=== PATIENT | female | born 1940 | race Caucasian/White ===

== ENCOUNTER 2021-01-01 14:52 | Outpatient (CLI) | payer OTHER, SELFPAY ==
--- NOTE | ~2021-01-01 | DEXA_ITS ---
Bone Density Report Name: Maryana Arteaga Age: 80 Sex: Female Ethnicity: White Date of : 1940 Indication: monitoring treatment; hysterectomy; Referring Provider: Thais Siddiqui Study: Bone densitometry was performed. Exam Date: January 01, 2021 Accession number: [id number] Bone Density: Region BMD T-score Z-score Classification AP Spine (L1-L4) 0.988 -0.5 2.2 Normal Femoral Neck (Left) 0.685 -1.5 0.8 Osteopenia Total Hip (Left) 0.902 -0.3 1.8 Normal Total Hip Bilateral Avg 0.891 -0.4 1.7 Normal Femoral Neck (Right) 0.737 -1.0 1.3 Normal Total Hip (Right) 0.878 -0.5 1.6 Normal World Health Organization criteria for BMD impression classify patients as: Normal (T-score at or above -1.0), Osteopenia (T-score between -1.0 and -2.5), or Osteoporosis (T-score at or below -2.5). 10-year Fracture Risk: FRAX not reported because: Treated for osteoporosis Previous Exams: Region Exam Age BMD T-score BMD Change BMD Change Date g/cm2 vs Baseline vs Previous AP Spine(L1-L4) 01/01/2021 80 0.988 -0.5 0.042(4.4%)# 0.023(2.4%)# 05/01/2010 69 0.965 -0.7 0.019(2.0%) -0.011(-1.1%) 04/12/2008 67 0.976 -0.6 0.030(3.1%)* 0.030(3.1%)* 09/07/2005 65 0.946 -0.9 Total Hip(Left) 01/01/2021 80 0.902 -0.3 0.089(10.9%)# 0.032(3.7%)# 05/01/2010 69 0.870 -0.6 0.057(7.0%)* 0.036(4.4%)* 04/12/2008 67 0.834 -0.9 0.021(2.5%) 0.021(2.5%) 09/07/2005 65 0.813 -1.1 Total Hip(Right) 01/01/2021 80 0.878 -0.5 0.065(8.0%)# 0.027(3.2%)# 05/01/2010 69 0.851 -0.7 0.038(4.7%)* 0.020(2.5%) 04/12/2008 67 0.831 -0.9 0.018(2.2%) 0.018(2.2%) 09/07/2005 65 0.813 -1.1 *Denotes significance at 95% confidence level, LSC for AP Spine = 0.022 g/cm2, LSC for Total Hip = 0.027 g/cm2 Clinical Information Provided by Patient: Is being treated for osteoporosis Has used the following medications: Vitamin D, Calcium Has the following medical conditions: Hysterectomy Patient maximum height was 61 Menopause Age: 25 No regular weight bearing exercise Drinks caffeinated beverages Onset of menses at age 14 Number of children 4 Impression: The patient has low bone mass, based on the Left Femoral Neck T-score. No significant bone loss was observed. Discussion: PATIENT UNDER TREATMENT WITH NO SIGNIFICANT BMD LOSS SINCE LAST EXAM. In an untreated patient, BMD typically declines with age. A lack of decline
--- NOTE | ~2021-01-01 | MM_ITS ---
EXAMINATION: MM scrn pancho implant BI w kimmie HISTORY: Screening mammogram TECHNIQUE: Craniocaudal and mediolateral oblique 3-D tomosynthesis images with implant displacement a nd synthetic 2-D images were generated. Craniocaudal and mediolateral oblique views of the breasts wi thout implant displacement were obtained using full field digital mammography. CAD analysis was submi tted and interpreted. COMPARISON: 04/12/2019, 02/16/2018, 08/16/2017 BREAST PARENCHYMAL COMPOSITION: There are scattered areas of fibroglandular density. FINDINGS: There is no evidence of suspicious mass, calcification, or architectural distortion to sugg est malignancy in either breast. There has been no suspicious interval change. IMPRESSION: 1. No mammographic evidence of malignancy. 2. Recommend routine screening mammography while the patient remains in good health. BI-RADS Category 1: Negative Reviewed, dictated and finalized at location A. IMPRESSION: 1. No mammographic evidence of malignancy. 2. Recommend routine screening mammography while the patient remains in good he alth. BI-RADS Category 1: Negative
== END 2021-01-01 14:53 | disposition home or self-care (01) ==
PROVIDERS: PCP Internal Medicine; Visit Provider Nurse Practitioner
DX: Z78.0 Asymptomatic menopausal state (principal); Z12.31 Encounter for screening mammogram for malignant neoplasm of breast; M85.852 Other specified disorders of bone density and structure, left thigh
CPT/HCPCS: 77063; 77067; 77080

== ENCOUNTER 2021-01-08 14:00 | Outpatient (CLI) | payer OTHER, MEDICARE, SELFPAY | END 2021-01-08 14:01 | disposition home or self-care (01) | LOC: ANHCOVIDVC 14:00 | PROVIDERS: PCP Internal Medicine | DX: Z23 Encounter for immunization (principal) | CPT/HCPCS: 0001A; 91300 ==

== ENCOUNTER 2021-01-29 14:05 | Outpatient (CLI) | payer OTHER, MEDICARE, SELFPAY | END 2021-01-29 14:06 | disposition home or self-care (01) | LOC: ANHCOVIDVC 14:05 | PROVIDERS: PCP Internal Medicine | DX: Z23 Encounter for immunization (principal) | CPT/HCPCS: 0002A; 91300 ==

== ENCOUNTER 2021-07-22 03:17 | Day surgery (SDC) | payer OTHER, SELFPAY ==
[2021-07-10 13:19] VITALS: BMI 30.8
[2021-07-22 10:13] VITALS: BP 154/70; PULSE 70; RESP 18; TEMP 36.5; O2SAT 100
[2021-07-22] MEDS: LACTATED RINGERS 1,000 ML 30 ML IV CONT (10:35)
--- NOTE | 2021-07-22 11:24 | WPDANESEPPF ---
Anes - Initial Pre Proc Eval Procedure: Operation Date: 07/22/21 12:00 Proposed Procedures p Excision Left Upper Back Mass - Krishna Roque DO Date/Time: 07/22/21 11:24 Surgeon: Krishna Roque DO Pre Op Diagnosis: Left Upper Back Mass (6CM) Patient Data Age: 80 Gender: F Height: 1.55 m Weight: 73.35 kg Last Vital Signs Temp 36.5 C 07/22/21 10:13 Pulse 70 07/22/21 10:13 Resp 18 07/22/21 10:13 BP 154/70 H 07/22/21 10:13 Pulse Ox 100 07/22/21 10:13 Allergies Allergy/AdvReac Type Severity Reaction Status Date / Time No Known Allergies Allergy Verified 07/22/21 10:41 Home Medications Medication Instructions Recorded Confirmed Type aspirin 81 mg PO QAM #30 tablet 08/31/19 07/22/21 Rx blood pressure monitor [Blood #1 each 08/31/19 07/22/21 Rx Pressure Kit] calcium carbonate 500 mg calcium 500 mg PO DAILY #90 tablet 01/05/21 07/22/21 Rx (1,250 mg) tablet atorvastatin 40 mg tablet See Rx Instructions .ROUTE 03/16/21 07/22/21 Rx .COMPLEX #90 tablet cholecalciferol (vitamin D3) 1,250 50,000 unit PO WEEKLY #12 cap 05/14/21 07/22/21 Rx mcg (50,000 unit) capsule losartan 50 mg tablet 50 mg PO DAILY 07/07/21 07/22/21 History biotin 5 mg PO DAILY 07/10/21 07/22/21 History fluticasone propionate 2 spray NASAL PRN PRN 07/10/21 07/22/21 History ropinirole 1 mg PO HS PRN 07/10/21 07/22/21 History omeprazole 40 mg capsule,delayed 40 mg PO DAILY #90 cap 07/13/21 07/22/21 Rx release Patient hx anesthesia problems: none Family hx anesthesia problems: none Results Review: All pre-operative results and documents have been reviewed as part of the pre-operative evaluation. [facility] Past Medical History Medical History Abdominal cramping Cerebrovascular accident Dyslipidemia GERD without esophagitis History of ganglion cyst Hypertension Osteoarthritis Vitamin D deficiency Surgical History Surgical History History of bladder repair surgery History of laparoscopic cholecystectomy Hx of hysterectomy S/P breast augmentation Status post blepharoplasty Status post cataract extraction Status post cholecystectomy Family History Family History Sibling Diabetes mellitus Family history of diabetes mellitus in first degree relative Family history of lung cancer Patient's sister is Mother Family history of Alzheimer's disease Patient's mother is Father Family history of lung cancer Patient's father is Social History Social History Social History: Mrs. Arteaga is and lives in [place] with her Richard. They have 4 children, one who is . She is retired from [employer]. She designates her as her surrogate decision maker and she wishes to be a full code. She smoked up to 2 packs of cigarettes per day and quit in the late . No alcohol or drug abuse. Her primary care provider is Dr. Av Brambila. Smoking packs per day: 2 Smoking cigarettes per day: 40.0 Years smoked: 30 Smoking pack-years: 60.00 Smoking status: Former smoker Tobacco type: cigarettes Second hand tobacco smoke exposure: Yes Smoking end date: 10/03/89 Alcohol intake: never Living arrangements: with family Spiritual care concerns: No Anes - Eval Final PreProcedure Day of Procedure 07/22/21 11:24 Patient weight: obese Heart: regular rate and rhythm Lungs: clear to auscultation Airway: Mallampati scale class II Neurological: alert and oriented Last oral intake: >/= 8 hours ASA classification: III Emergent: no Anesthetic plan: proceed Anesthesia type and monitoring: general GIVS and standard monitoring Results Review: All pre-operative results and documents have been reviewed as
--- NOTE | 2021-07-22 12:21 | WPDHPUPDATE1 ---
History and Physical Update Update Date/Time: 07/22/21 12:21 History and Physical has been reviewed, including an updated exam of the patient. There are NO changes in the patient's condition. Risks, benefits, and alternatives have been discussed and questions answered. Patient agrees to proceed with procedure.
[2021-07-22] MEDS: ceFAZolin 2 GM/D5W 50 ML 2 GM/50 ML BAG IVPB (12:31)
[2021-07-22] MEDS: LIDO 1%/EPINEPHRINE 1:100,000 50 ML VIAL 10 ML INFILTRATE (12:54)
--- NOTE | 2021-07-22 13:14 | W.PM.PROC2 ---
Procedure Note - Detailed Date of Procedure 07/22/21 Pre-op Diagnosis Left Upper Back Mass (6CM) Post-op Diagnosis same Procedure Performed 1. Excision 6 cm left upper back mass 2. Layered closure Surgeon Krishna Roque, DO Anesthesia MAC and local (1% lidocaine with epinephrine) Indications This is an 80-year-old woman who presented with a progressively enlarging mass on her back. She has noticed this for a couple years and it has become larger and she does have some discomfort when leaning up against something. Discussions were made with the patient about treatment options and decision was made to proceed with excision of 6 cm back mass. Findings Excision of 6 cm back mass was performed. The patient appeared to have a large lipoma in the left upper back. No other surrounding abnormalities were noted. The mass was completely excised and sent to the lab for pathology. The Vince's fascia was then reapproximated using 3-0 Vicryl simple interrupted sutures and the skin was reapproximated using 3-0 nylon vertical mattress interrupted sutures. Description of Procedure Procedure as well as risks, benefits, and alternatives were discussed with the patient. Written consent was obtained and placed in chart prior to procedure. Patient was brought back to surgical suite. She was placed in right lateral decubitus position. Time-out was done to confirm patient and procedure. IV sedation was then administered by the anesthesia department. Her left upper back area was prepped and draped in sterile fashion using chlorhexidine prep. 1% lidocaine with epinephrine was infiltrated directly over the mass. A 6 cm transverse incision was made in the left upper back directly over the mass using a 15 blade scalpel. Electrocautery was used for hemostasis. Careful further dissection was carried out using electrocautery down to the level of the mass. The mass was then carefully excised completely using electrocautery. The wound bed was then inspected and no other masses were identified. The area was then irrigated with sterile saline. Hemostasis appeared adequate. No other abnormalities were noted. Vince's fascia was then reapproximated using 3-0 Vicryl simple interrupted sutures. The skin was then reapproximated using 3-0 nylon vertical mattress interrupted sutures. Bacitracin ointment was then applied followed by 4 x 4 gauze and tape. Estimated Blood Loss 5 Pathology yes (6 cm left upper back mass) Complications No immediate complications Condition stable Disposition same day
[2021-07-22 13:21] VITALS: BP 96/50; PULSE 62; RESP 14; O2SAT 98
[2021-07-22 13:45] VITALS: BP 106/54; PULSE 63; RESP 14; O2SAT 98
[2021-07-22 14:15] VITALS: BP 121/53; PULSE 60; RESP 16; O2SAT 100
== END 2021-07-22 14:31 | disposition home or self-care (01) ==
PROVIDERS: PCP Student in an Organized Health Care Education/Training Program; Visit Provider Surgery
PROC: (CPT 21931; principal; 2021-07-22 12:00)
DX: D17.1 Benign lipomatous neoplasm of skin and subcutaneous tissue of trunk (principal); E78.5 Hyperlipidemia, unspecified; I10 Essential (primary) hypertension; K21.9 Gastro-esophageal reflux disease without esophagitis; E55.9 Vitamin D deficiency, unspecified; Z86.73 Personal history of transient ischemic attack (TIA), and cerebral infarction without residual deficits; M19.90 Unspecified osteoarthritis, unspecified site; Z79.82 Long term (current) use of aspirin; Z87.891 Personal history of nicotine dependence; E66.9 Obesity, unspecified; Z68.30 Body mass index [BMI] 30.0-30.9, adult
CPT/HCPCS: 21931; 88304; A9270; J0690; J2405; J2704; J3010; J7120

== ENCOUNTER → 2022-03-11 11:17 | Outpatient (CLI) | payer OTHER, SELFPAY ==
--- NOTE | ~2022-03-11 | MM_ITS ---
EXAMINATION: MM scrn pancho implant BI w kimmie HISTORY: Screening mammogram TECHNIQUE: Craniocaudal and mediolateral oblique 3-D tomosynthesis images with implant displacement a nd synthetic 2-D images were generated. Craniocaudal and mediolateral oblique views of the breasts wi thout implant displacement were obtained using full field digital mammography. CAD analysis was submi tted and interpreted. COMPARISON: 122, 04/12/2019, 02/16/2018 BREAST PARENCHYMAL COMPOSITION: There are scattered areas of fibroglandular density. FINDINGS: RIGHT BREAST: There is no evidence of suspicious mass, calcification, or architectural distortion to suggest malignancy. There has been no significant interval change. LEFT BREAST: There is a possible mass in the anterior third of the slightly inner breast. IMPRESSION: 1. Possible left breast mass. 2. Additional mammographic views and possible breast ultrasound are recommended. BI-RADS Category 0: Incomplete: Needs additional imaging evaluation. Reviewed, dictated and finalized at location A. IMPRESSION: 1. Possible left breast mass. 2. Additional mammographic views and possible breast ultrasound are recommended . BI-RADS Category 0: Incomplete: Needs additional imaging evaluation.
== END ==
PROVIDERS: PCP Student in an Organized Health Care Education/Training Program; Visit Provider Obstetrics & Gynecology Gynecology
DX: Z12.31 Encounter for screening mammogram for malignant neoplasm of breast (principal); R92.8 Other abnormal and inconclusive findings on diagnostic imaging of breast
CPT/HCPCS: 77063; 77067

== ENCOUNTER → 2022-03-24 09:54 | Outpatient (CLI) | payer OTHER, SELFPAY ==
--- NOTE | ~2022-03-24 | MMUS_ITS ---
EXAMINATION: MM diag pancho implant LT w kimmie, US breast LT complete HISTORY: Possible left breast mass in the anterior third of slightly inner breast reported on 03/21/20 screening mammogram TECHNIQUE: Additional 3-D tomosynthesis images of the left breast were performed and synthetic 2-D im ages were generated. CAD analysis was submitted and interpreted. High resolution complete left breast ultrasound including all 4 quadrants and subareolar area was performed. COMPARISON: 03/11/2021, 01/01/2021 bilateral implant screening mammogram examinations FINDINGS: MAMMOGRAPHIC FINDINGS: Asymmetric increased density is noted posteriorly in the mid to upper inner left breast since Somewhat nodular appearing fibroglandular stroma is noted throughout the breast. Complete breast ultr asound examination was performed. ULTRASOUND: 2:00 8 cm from nipple: Parallel 2.2 x 7.9 x 5 mm sonolucency consistent with cyst 4:00 5 cm from nipple: Parallel circumscribed 2.4 x 5.6 x 4.4 mm sonolucent, compatible with simple c yst 6:00 4 cm from nipple: Septated 4.1 x 4.3 x 4.5 mm cyst 10:00 7 cm from nipple: Irregular heterogeneous hypoechoic mass with mild internal vascularity on col or flow imaging, measuring up to 9 x 5.6 x 7.4 mm. No posterior features are noted. This corresponds to the approximate area of new asymmetric density mammographically. Ultrasound-guided biopsy is recom mended. 11:00 4 cm from nipple: Parallel circumscribed 5.9 x 2.7 x 6.3 mm hypoechoic area without internal va scularity or posterior shadowing IMPRESSION: 1. New up to 9 mm irregular hypoechoic heterogeneous mass 10:00 7 cm from nipple 2. Ultrasound-guided biopsy of 10:00 mass is recommended BI-RADS category 4, suspicious findings. Reviewed, dictated and finalized at location A. IMPRESSION: 1. New up to 9 mm irregular hypoechoic heterogeneous mass 10:00 7 cm from nippl e 2. Ultrasound-guided biopsy of 10:00 mass is recommended BI-RADS category 4, suspicious findings.
== END ==
PROVIDERS: PCP Student in an Organized Health Care Education/Training Program; Visit Provider Obstetrics & Gynecology Gynecology
DX: R92.8 Other abnormal and inconclusive findings on diagnostic imaging of breast (principal)
CPT/HCPCS: 76641; 77061; 77065; G0279

== ENCOUNTER 2022-04-14 10:11 | Outpatient (CLI) | payer OTHER, SELFPAY ==
--- NOTE | ~2022-04-14 | MMUS_ITS ---
EXAMINATION: US breast biopsy LT w image, MM post biopsy invasive LT DATE: 04/14/2022 11:23 (accession [id number]), 04/14/2022 11:26 (accession [id number]) INDICATION: Indeterminate mass in the upper outer quadrant of the left breast Ultrasound-guided core biopsy is requested to evaluate for malignancy. TECHNIQUE AND FINDINGS: The risks and potential benefits of the procedure were discussed with the patient including bleeding, infection, and nondiagnostic specimen. A time out was performed. The skin of the left breast was pre pared and draped in usual sterile fashion. 1% lidocaine was used for superficial anesthesia. 1% lidoc tucker with epinephrine was used for deep anesthesia. A vacuum-assisted biopsy gun needle was advanced through to the outer edge of the region of interest from a lateral approach utilizing sonographic guidance. A total of six tissue core samples were obtai fletcher through the lesion. A tissue marker clip was then placed at the biopsy site. Hemostasis was achie joshua. A sterile bandage was applied. The patient tolerated procedure well and there was no evidence of immediate complication. The patient was given verbal instructions to return to the Emergency Department in the event of severe breast pa in or rapid breast enlargement. A two view left breast mammogram was obtained to document tissue eladio er clip placement. IMPRESSION: 1. Successful ultrasound-guided vacuum-assisted biopsy of left breast mass with tissue marker placeme nt. Reviewed, dictated and finalized at location A. IMPRESSION: 1. Successful ultrasound-guided vacuum-assisted biopsy of left breast mass with tissue marker placement.
== END 2022-04-14 10:12 | disposition home or self-care (01) ==
PROVIDERS: PCP Student in an Organized Health Care Education/Training Program; Visit Provider Surgery
DX: C50.912 Malignant neoplasm of unspecified site of left female breast (principal); R92.8 Other abnormal and inconclusive findings on diagnostic imaging of breast
CPT/HCPCS: 19083; 88305; 88342; A4648

== ENCOUNTER 2022-05-21 10:19 | Outpatient (CLI) | payer OTHER, SELFPAY ==
--- NOTE | 2022-05-21 10:30 | ECG_ITS ---
Measurements Intervals Foster Rate: 62 P: 21 MN: 136 QRS: -25 QRSD: 101 T: -16 QT: 393 QTc: 400 Interpretive Statements SINUS RHYTHM WITH OCCASIONAL VENTRICULAR PREMATURE COMPLEXES BORDERLINE LEFT AXIS DEVIATION [QRS AXIS < -20] MODERATE VOLTAGE CRITERIA FOR LVH, CONSIDER NORMAL VARIANT [MEETS CRITERIA IN ONE OF: R(aVL), S(V1), R(V5), R(V5/V6)+S(V1)] ABNORMAL ECG COMPARED TO ECG 08/30/2019 11:37:09 NO SIGNIFICANT CHANGES Electronically Signed On 05-21-2022 12:05:34 CDT by Omer Rizvi M.D.
[2022-05-21 10:58] LABS: Hematocrit 43.3 % (37.0-47.0); Hemoglobin 13.4 g/dL (12.0-15.0)
== END 2022-05-21 10:20 | disposition home or self-care (01) ==
LOC: ANHSURGERY 10:26
PROVIDERS: Anesthesiology; PCP Student in an Organized Health Care Education/Training Program; Visit Provider Surgery
DX: C50.919 Malignant neoplasm of unspecified site of unspecified female breast (principal); I10 Essential (primary) hypertension; Z86.39 Personal history of other endocrine, nutritional and metabolic disease; Z01.818 Encounter for other preprocedural examination; R94.31 Abnormal electrocardiogram [ECG] [EKG]
CPT/HCPCS: 36415; 85014; 85018; 86850; 86900; 86901; 93005

== ENCOUNTER 2022-05-25 01:25 | Day surgery (SDC) | payer OTHER, SELFPAY ==
--- NOTE | 2022-05-20 08:33 | PC.NURSE ---
Report to the Outpatient Waiting Room, entrance under the green pavilion located off [facility], at time _0830 on date _05/25/22 . OR Time: _1130 . [facility] AT 0930 - You and your visitor will be asked to self-screen and do not enter if you have any COVID symptoms. - Only one visitor and NO children visitors are allowed at this time. - The patient visitor is requested to leave or wait in car when not with patient due to restrictions. - A mask is required within the hospital. Patients may have clear liquids (water, carbonated beverages, clear teas, apple juice) until 3 hours prior to surgery with a maximum of 20 ounces. - No food from midnight until time of surgery - Infants may have breast milk until 4 hours before surgery, formula 6 hours prior to surgery. - Children will be allowed to drink immediately following surgery. If applicable, please bring a bottle or sippy cup to assist with drinking. Juice, water, soda, and popsicles are readily available. For infants on formula, please bring formula the day of surgery. Pacifiers are allowed. Take the following medications with a SIP of water the morning of surgery: __NONE Medications to discontinue per physician ____ALL VITAMINS AND SUPPLEMENTS 3 DAYS PRE OP Date to take last dose___05/21/22 Please no make-up, nail indonesian, hairspray, perfume, deodorant, or body powder the day of surgery. No jewelry (including any body piercings) or valuables the day of surgery, leave them at home. Please take a shower or bath the night before, or the morning of, surgery with an antibacterial soap. Wear comfortable, loose fitting clothing. Children are encouraged to wear pajamas. - Jewelry must be removed prior to entering the operating room. Rings and piercings that are not removed may be cut off. - The hospital will not accept responsibility for valuables. - Please leave all valuables, including medications, at home the day of surgery.HIBICLENS SHOWER MORNING OF SURGERY If you are going home after surgery, a licensed professional driver must drive you home. - NO public transportation without another adult. - We recommend that an adult stay with you for 24 hours following discharge. - We also recommend that you do not drive, make important decision, drink alcoholic beverages, or take any drugs that were not prescribed by your health care provider for at least 24 hours after your discharge time. For Pediatric surgeries, we recommend two adults accompany the child home (only one inside the building at this time). Follow any additional instructions given to you from your surgeon. If you or anyone in your household have experienced Covid symptoms in the past week, please notify your surgeon or the nurse liaison at the phone number below for possible testing. Telephone instructions given to __PATIENT and asked if any additional questions and then verbalized understanding. Patient advised to call surgeon office or pre surgery nurse liaison [phone] if any additional questions.
[2022-05-20 08:44] VITALS: BMI 31.1
[2022-05-25] VITALS (14 sets, daily range): BP systolic 134–166; BP diastolic 52–75; PULSE 44–74; RESP 12–20; TEMP 35.9–36.5; O2SAT 98–100
--- NOTE | ~2022-05-25 | NM_ITS ---
NM sentinel node w imaging 05/25/2022 11:33 CDT INDICATION: Left breast cancer TECHNIQUE: 1 Millicuries Tc 99m filtered sulfur colloid was injected and 4 aliquots in the anterior u pper outer quadrant of the breast near the areola. No images were obtained. IMPRESSION: 1: Status post left breast sentinel lymph node radiopharmaceutical injection. Reviewed, dictated and finalized at location A.
[2022-05-25 10:13] LABS: Glucose Point of Care 117 mg/dl (65-105)
[2022-05-25] MEDS: ACETAMINOPHEN 500 MG TABLET 1000 MG PO (10:15)
[2022-05-25] MEDS: KETOROLAC 15 MG/ML VIAL (*BKC) IV PUSH (10:15)
--- NOTE | 2022-05-25 10:36 | SUR.PREOP ---
1030 PT TO NUCLEAR MEDICINE PER WHEELCHAIR.
[2022-05-25] MEDS: LACTATED RINGERS 1,000 ML 30 ML IV CONT ×2 (10:50→14:32)
--- NOTE | 2022-05-25 10:53 | WPDANESEPPF ---
Anes - Initial Pre Proc Eval Procedure: Operation Date: 05/25/22 11:30 Proposed Procedures p Bilateral Simple Mastectomy with, - Krishna Roque DO s Left Axillary [place] Node Biopsy - Krishna Roque DO Date/Time: 05/25/22 10:53 Surgeon: Krishna Roque DO Pre Op Diagnosis: left Breast cancer Patient Data Age: 81 Gender: F Height: 1.55 m Weight: 75.25 kg Last Vital Signs Temp 36.1 C L 05/25/22 09:40 Pulse 74 05/25/22 09:40 Resp 18 05/25/22 09:40 BP 162/62 H 05/25/22 09:40 Pulse Ox 98 05/25/22 09:40 O2 Del Method Room Air 05/25/22 09:40 Allergies Allergy/AdvReac Type Severity Reaction Status Date / Time amlodipine Allergy Swelling Verified 05/25/22 09:50 lisinopril Allergy Cough Verified 05/25/22 09:50 Home Medications Medication Instructions Recorded Confirmed Type aspirin 81 mg tablet,delayed 81 mg PO QAM #30 tabs 08/31/19 05/25/22 Rx release blood pressure monitor (Blood #1 ea 08/31/19 04/27/22 Rx Pressure Kit) calcium carbonate 500 mg calcium 500 mg PO DAILY #90 tabs 01/05/21 05/25/22 Rx (1,250 mg) tablet cholecalciferol (vitamin D3) 1,250 50,000 unit PO WEEKLY #12 caps 05/14/21 05/25/22 Rx mcg (50,000 unit) capsule losartan 50 mg tablet 50 mg PO DAILY 07/07/21 05/20/22 History fluticasone propionate 50 2 spray intranasal PRN PRN Allergy 07/10/21 05/25/22 History mcg/actuation nasal Symptoms spray,suspension ropinirole 0.5 mg tablet 1 mg PO HS PRN restless leg 07/10/21 05/25/22 History omeprazole 40 mg capsule,delayed 40 mg PO DAILY #90 caps 07/13/21 05/25/22 Rx release atorvastatin 40 mg tablet See Rx Instructions .Route 01/18/22 05/25/22 Rx .COMPLEX #90 tabs ferrous sulfate 325 mg (65 mg 325 mg PO DAILY 05/20/22 05/25/22 History iron) tablet Laboratory Tests 05/25/22 10:07 POC Capillary Glucose 117 mg/dl H mg/dl (65-105) Patient hx anesthesia problems: none Family hx anesthesia problems: none Results Review: All pre-operative results and documents have been reviewed as part of the pre-operative evaluation. [facility] Past Medical History Medical History Abdominal cramping Cerebrovascular accident Dyslipidemia GERD without esophagitis History of ganglion cyst Hypertension Osteoarthritis Vitamin D deficiency Surgical History Surgical History H/O excision of mass LEFT UPPER BACK MASS, 07/22 History of bladder repair surgery History of laparoscopic cholecystectomy Hx of hysterectomy S/P breast augmentation Status post blepharoplasty Status post cataract extraction Status post cholecystectomy Family History Family History Sibling Diabetes mellitus Family history of diabetes mellitus in first degree relative Family history of lung cancer Patient's sister is Mother Family history of Alzheimer's disease Patient's mother is Father Family history of lung cancer Patient's father is Social History Social History Social History: Mrs. Arteaga is and lives in [place] with her Richard. They have 4 children, one who is . She is retired from [employer]. She designates her as her surrogate decision maker and she wishes to be a full code. She smoked up to 2 packs of cigarettes per day and quit in the late . No alcohol or drug abuse. Her primary care provider is Dr. Av Brambila. Smoking packs per day: 2 Smoking cigarettes per day: 40.0 Years smoked: 30 Smoking pack-years: 60.00 Smoking status: Former smoker Tobacco type: cigarettes Second hand tobacco smoke exposure: Yes Smoking end date: 10/03/88 Alcohol intake: never Living arrangements: with family Spiritual care concerns: No
--- NOTE | 2022-05-25 10:55 | SUR.PREOP ---
1050 PT RETURNED FROM NUCLEAR MEDICINE PER WHEELCHAIR
--- NOTE | 2022-05-25 11:41 | WPDHPUPDATE1 ---
History and Physical Update Update Date/Time: 05/25/22 11:41 History and Physical has been reviewed, including an updated exam of the patient. There are NO changes in the patient's condition. Risks, benefits, and alternatives have been discussed and questions answered. Patient agrees to proceed with procedure. Discussed with patient that bilateral breast implants will be removed with mastectomy.
[2022-05-25] MEDS: ceFAZolin 2 GM/D5W 50 ML 2 GM/50 ML BAG IVPB (11:47)
[2022-05-25] MEDS: ISOSULFAN BLUE 1% INJ 5 ML VIAL SUB-Q (11:59)
--- NOTE | 2022-05-25 14:41 | W.PM.PROC2 ---
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 Bilateral simple mastectomy 2. Lymphatic mapping of left axillary lymph nodes with isosulfan blue dye 3. Left axillary sentinel lymph node biopsy 4. Removal of bilateral breast implants Surgeon Krishna Roque, DO Anesthesia General and Local (0.25% bupivicaine with epinephrine) Indications This is an 81-year-old woman who presented with a recent abnormal mammogram. She underwent ultrasound-guided left breast needle biopsy on 04/14/2022 and pathology showed evidence of invasive ductal carcinoma. Patient also has history of bilateral breast implants that were done more than 40 years ago. On the mammography the breast implants appeared to be anterior to the pectoral muscle. She was referred to Plastic surgery for evaluation in case this was going to be a complicated procedure to remove the implants with the mastectomy. Treatment options were discussed in detail including lumpectomy and mastectomy. She was also given the option of bilateral mastectomy. Reconstruction was also discussed with the patient however she did not wish to proceed with reconstruction. Patient elected to proceed with bilateral mastectomy. Due to the location the implants with close proximity to the breast tissue, I discussed with the patient that the implants will likely need to be removed to perform an adequate oncologic resection. Decision was then made to proceed with bilateral mastectomy, left axillary sentinel lymph node biopsy, and removal of bilateral breast implants. Findings Bilateral simple mastectomy was performed. Careful dissection was completed to remove all of the breast tissue and include the implants within the specimen. A carefully dissected all the way down to the pectoral fascia to prevent entering into the previous implants. Each mastectomy was performed and each specimen was labeled with a short suture superior and long suture lateral. I then also performed the left axillary sentinel lymph node biopsy. Prior to prepping and draping, 4 mL of Isosulfan blue was infiltrated in the periareolar region of the left breast. The left breast was massaged for several minutes to allow time for the blue dye to diffuse into the lymphatics. The right mastectomy was performed 1st and then I proceeded with the left mastectomy and left axillary sentinel lymph node biopsy. I identified 1 lymph node that was blue and showing increased uptake with the nuclear isotope. The nuclear probe reading was over 1000 within the single sentinel lymph node and the baseline uptake within the axilla after the lymph node was removed was only around 40-50. No other lymph nodes were identified for removal. Description of Procedure Procedure as well as risks, benefits, and alternatives were discussed with the patient. Written consent was obtained and placed in chart prior to procedure. Patient was brought back to surgical suite. She was placed supine on operating table. Time-out was done to confirm patient and procedure. She was then intubated by the anesthesia department. I then cleansed the periareolar region with an alcohol wipe and infiltrated isosulfan blue at the for corners of the periareolar region of the left breast. Total of 4 mL was infiltrated and then the low left breast was massaged for several minutes. The bilateral breast and axillary region was then prepped and draped in sterile fashion using chlorhexidine prep. The resection margins were carefully marked out using a skin marker. 0.25% bupivacaine with epinephrine was infiltrated locally around each breast area. Began on the right size and created an elliptical incision around the right breast and nipple areola complex using a 10 blade scalpel. Electrocautery was used for hemostasis and for careful creation of the skin flaps both cephalad and cauda
[2022-05-25 15:17] LABS: Glucose Point of Care 122 mg/dl (65-105)
[2022-05-25] MEDS: fentaNYL CITRATE INJ (*CRX) 100 MCG/2 ML VIAL 25 MCG IV PUSH ×2 (15:40→15:45)
[2022-05-25] MEDS: LACTATED RINGERS 1,000 ML 100 ML IV CONT (17:18)
--- NOTE | 2022-05-25 17:19 | ECG_ITS ---
Measurements Intervals [place] Rate: 47 P: 24 [place]: 129 QRS: -22 QRSD: 101 T: -31 QT: 476 QTc: 424 Interpretive Statements SINUS BRADYCARDIA WITH SINUS ARRHYTHMIA BASELINE ARTIFACT MODERATE VOLTAGE CRITERIA FOR LVH NONSPECIFIC T-WAVE ABNORMALITY ABNORMAL ECG COMPARED TO ECG 05/21/2022 10:49:05 HEART RATE HAS DECREASED Electronically Signed On 05-25-2022 18:31:15 CDT by Rojas Serrano M.D.
--- NOTE | 2022-05-25 17:22 | PC.NURSE ---
Patient noted to be bradycardic with post op vital signs. Placed pt on tele and heart rate was SB in 40's. BP 158/75. Patient in bed and asymptomatic. Dr Dutton notified with new orders received.
--- NOTE | 2022-05-25 18:29 | WPDCN ---
[facility] Past Medical History Medical History Abdominal cramping Cerebrovascular accident Dyslipidemia GERD without esophagitis History of ganglion cyst Hypertension Osteoarthritis Vitamin D deficiency Surgical History Surgical History H/O excision of mass LEFT UPPER BACK MASS, 07/22 History of bladder repair surgery History of laparoscopic cholecystectomy Hx of hysterectomy S/P breast augmentation Status post blepharoplasty Status post cataract extraction Status post cholecystectomy Family History Family History Sibling Diabetes mellitus Family history of diabetes mellitus in first degree relative Family history of lung cancer Patient's sister is Mother Family history of Alzheimer's disease Patient's mother is Father Family history of lung cancer Patient's father is Social History Social History Social History: Mrs. Arteaga is and lives in [place] with her Richard. They have 4 children, one who is . She is retired from [employer]. She designates her as her surrogate decision maker and she wishes to be a full code. She smoked up to 2 packs of cigarettes per day and quit in the late . No alcohol or drug abuse. Her primary care provider is Dr. Av Brambila. Smoking packs per day: 2 Smoking cigarettes per day: 40.0 Years smoked: 30 Smoking pack-years: 60.00 Smoking status: Former smoker Tobacco type: cigarettes Second hand tobacco smoke exposure: Yes Smoking end date: 10/03/88 Alcohol intake: never Substance use: never Spiritual care concerns: No Meds Home Medications and Allergies Home Medications Medication Instructions Recorded Confirmed Type aspirin 81 mg tablet,delayed 81 mg PO QAM #30 tabs 08/31/19 05/25/22 Rx release blood pressure monitor (Blood #1 ea 08/31/19 05/25/22 Rx Pressure Kit) calcium carbonate 500 mg calcium 500 mg PO DAILY #90 tabs 01/05/21 05/25/22 Rx (1,250 mg) tablet cholecalciferol (vitamin D3) 1,250 50,000 unit PO WEEKLY #12 caps 05/14/21 05/25/22 Rx mcg (50,000 unit) capsule losartan 50 mg tablet 50 mg PO DAILY 07/07/21 05/20/22 History fluticasone propionate 50 2 spray intranasal PRN PRN Allergy 07/10/21 05/25/22 History mcg/actuation nasal Symptoms spray,suspension ropinirole 0.5 mg tablet 1 mg PO HS PRN restless leg 07/10/21 05/25/22 History omeprazole 40 mg capsule,delayed 40 mg PO DAILY #90 caps 07/13/21 05/25/22 Rx release atorvastatin 40 mg tablet See Rx Instructions .Route 01/18/22 05/25/22 Rx .COMPLEX #90 tabs ferrous sulfate 325 mg (65 mg 325 mg PO DAILY 05/20/22 05/25/22 History iron) tablet hydrocodone 5 mg-acetaminophen 325 1 tablet PO Q4H PRN pain #10 tabs 05/26/22 Rx mg tablet Allergies Allergy/AdvReac Type Severity Reaction Status Date / Time amlodipine Allergy Swelling Verified 05/25/22 09:50 lisinopril Allergy Cough Verified 05/25/22 09:50 Vital Signs Vital Signs - 24 hr 05/25/22 09:40 05/25/22 14:32 05/25/22 14:45 Temperature 96.9 F L 97.0 F L Pulse Rate 74 48 L 61 Respiratory Rate 18 12 12 Blood Pressure 162/62 H 140/63 140/65 Pulse Oximetry 98 99 100 Oxygen Delivery Room Air Simple Face Mask Simple Face Mask Oxygen Flow Rate 6 6 05/25/22 15:00 05/25/22 15:15 05/25/22 15:30 Temperature Pulse Rate 46 L 44 L 44 L Respiratory Rate 12 12 12 Blood Pressure 148/63 H 153/70 H 162/64 H Pulse Oximetry 100 99 100 Oxygen Delivery Room Air Room Air Room Air Oxygen Flow Rate 05/25/22 15:45 05/25/22 16:10 05/25/22 16:25 Temperature 96.9 F L 96.9 F L Pulse Rate 46 L 49 L 68 Respiratory Rate 12 16 16 Blood Pressure 154/68 H 143/59 H 158/75 H Pulse Oximetry 100 99 99 Oxygen [facility]
[2022-05-25] MEDS: ATORVASTATIN 40 MG TABLET PO (20:15)
[2022-05-26] VITALS (7 sets, daily range): BP systolic 128–136; BP diastolic 51; PULSE 46–53; RESP 18–20; TEMP 36.1–36.5; O2SAT 98–99
[2022-05-26] MEDS: ACETAMINOPHEN 500 MG TABLET 1000 MG PO (04:56)
--- NOTE | 2022-05-26 07:52 | PM.IMCN ---
Assessment and Plan Assessment and plan (1) Invasive ductal carcinoma of breast: Code(s): C50.919 - Malignant neoplasm of unspecified site of unspecified female breast Status: Acute Assessment and Plan: Dr. Coyle is primary Patient presented to [facility] for bilateral simple mastectomy with lymphatic node biopsy and removal of bilateral breast implants Surgery was performed on 05/25/2022 Patient is currently being managed with IV pain medication and oral narcotics PT/OT consulted for evaluation and treatment Encourage incentive spirometry after surgery (2) Hypertension: Code(s): I10 - Essential (primary) hypertension Status: Acute Assessment and Plan: Resume home medications when appropriate (3) Restless leg: Code(s): G25.81 - Restless legs syndrome Status: Acute Assessment and Plan: Resume home medication HPI Data of Consult Consult date: 05/26/22 Requesting Physician: Krishna Roque DO Primary Care Provider: Chad Farah, DO Consult Narrative Narrative: Maryana Arteaga is a 81 year old female with past medical history of breast augmentation, restless leg, iron deficiency anemia, hypertension. Patient presented to [facility] for an elective and mastectomy. During my encounter with the patient she reported mild dizziness today. She was unable to ambulate appropriately when she turns her head she becomes dizzy. Add meclizine x1 to the patient's medication list. Patient says she often suffers from vertigo. Patient otherwise stable. No acute interventions need to be performed by hospitalist today. Patient appears stable Review of Systems Review of Systems: All systems reviewed & are unremarkable except as noted in HPI and below PMFSH Past Medical History Medical History Abdominal cramping Cerebrovascular accident Dyslipidemia GERD without esophagitis History of ganglion cyst Hypertension Osteoarthritis Vitamin D deficiency Surgical History Surgical History H/O excision of mass LEFT UPPER BACK MASS, 07/22 History of bladder repair surgery History of laparoscopic cholecystectomy Hx of hysterectomy S/P breast augmentation Status post blepharoplasty Status post cataract extraction Status post cholecystectomy Family History Family History Sibling Diabetes mellitus Family history of diabetes mellitus in first degree relative Family history of lung cancer Patient's sister is Mother Family history of Alzheimer's disease Patient's mother is Father Family history of lung cancer Patient's father is Social History Social History Social History: Mrs. Arteaga is and lives in [place] with her Richard. They have 4 children, one who is . She is retired from [employer]. She designates her as her surrogate decision maker and she wishes to be a full code. She smoked up to 2 packs of cigarettes per day and quit in the late . No alcohol or drug abuse. Her primary care provider is Dr. Av Brambila. Smoking packs per day: 2 Smoking cigarettes per day: 40.0 Years smoked: 30 Smoking pack-years: 60.00 Smoking status: Former smoker Tobacco type: cigarettes Second hand tobacco smoke exposure: Yes Smoking end date: 10/03/88 Alcohol intake: never Substance use: never Living arrangements: with family Spiritual care concerns: No Meds Home Medications and Allergies Home Medications Medication Instructions Recorded Confirmed Type aspirin 81 mg tablet,delayed 81 mg PO QAM #30 tabs 08/31/19 05/25/22 Rx release blood pressure monitor (Blood #1 ea 08/31/19 05/25/22 Rx Pressure Kit) calcium carbonat
[2022-05-26] MEDS: PANTOPRAZOLE 40 MG TABLET PO (08:07)
[2022-05-26] MEDS: ASPIRIN 81 MG ENTERIC TABLET PO (08:07)
[2022-05-26] MEDS: LOSARTAN POTASSIUM 50 MG TABLET PO (08:07)
--- NOTE | 2022-05-26 08:33 | WPDANESPN ---
Anes - Prog Note Post-Op Date/Time: 05/26/22 08:33 Cardiovascular status: normal Respiratory status: normal Airway patency: baseline Mental status: baseline Post-Op hydration status: normal Vital Signs: Last Vital Signs Temp 36.1 C L 05/26/22 05:00 Pulse 50 L 05/26/22 05:00 Resp 18 05/26/22 05:00 BP 136/51 L 05/26/22 05:00 Pulse Ox 99 05/26/22 05:00 O2 Del Method Room Air 05/26/22 03:13 O2 Flow Rate 6 05/25/22 14:45 Pain Score (VAS): 2 I/O: Intake & Output 05/25/22 05/26/22 05/26/22 23:59 07:59 15:59 Intake Total 855 450 Output Total 1078 1150 Balance -223 -700 05/25/22 05/25/22 10:07 15:12 POC Capillary Glucose 117 H 122 H Patient Feedback: Patient satisfied with anesthetic care.
--- NOTE | 2022-05-26 09:29 | PM.DS ---
DS: Admitting Diagnosis Discharge Date 05/26/2022 Admitting Diagnosis Left breast cancer DS: Discharge Diagnosis Discharge Diagnosis (1) Invasive ductal carcinoma of breast: Code(s): C50.919 - Malignant neoplasm of unspecified site of unspecified female breast Status: Acute DS: Summary Hospital Course Reason for hospitalization: Left breast cancer Hospital Course: This is an 81-year-old woman who presented with a recent finding of left breast cancer. She had a routine screening mammogram which showed evidence of an irregular mass. Needle biopsy showed evidence of invasive ductal carcinoma. Discussions were made with the patient about treatment options and she chose to proceed with bilateral mastectomy with left sentinel lymph node biopsy. She has a prior history of bilateral breast implants that were placed over 40 years ago. She was seen by Plastic surgery and the breast implants appeared to be anterior to the pectoralis muscle and also are likely ruptured. Decision was made to plan with removal of breast implants at the time of mastectomy. Patient chose not to have immediate reconstruction. She underwent bilateral mastectomy with removal of bilateral breast implants and left axillary sentinel lymph node biopsy on 05/25/2022. She was placed surgical unit postoperatively. Her diet and activity were advanced as tolerated. The drains were carefully monitored and were showing evidence of minimal serosanguineous output. Her pain was well controlled on postop day 1 and she was able to get up out of bed in tolerate light activity. She was remaining hemodynamically stable. She was given instruction on drain care and how to record output. She was discharged on 05/26/2022. Status at Discharge Functional status at discharge: independent ambulation Overall status at discharge: patient is progressing back to baseline Time Spent with Patient Time attestation: Total time spent providing and/or coordinating discharge services: Time spent: Less than 30 minutes Exam Const: General: no acute distress and alert Orientation/consciousness: patient oriented x3 Chest: Other: Incisions drying and intact with glue. Minimal serosanguineous output and CASH drains. Resp: Effort & Inspection: normal respiratory effort Auscultation: clear to auscultation bilaterally Cardio: Rate: regular rate Rhythm: regular rhythm DS: Data Data Completed and Pending Pending studies at discharge: Pending at discharge 05/25/22 13:37 Surgical [PTH] Routine Surgical [PTH] Routine Surgical [PTH] Routine Labs on day of discharge: Labs from last 24 hours 05/25/22 05/25/22 15:12 10:07 POC Capillary Glucose 122 H 117 H Discharge Plan Discharge Patient Disposition: Home, Self-Care Discharge Instructions: Discharge Instruction Sheet for [place] Node Biopsy (Possible Axillary Node Dissection) Patients [facility] [address] [place]. [address] 1.) Keep wound clean and dry. If drains are present, will need to sponge bathe or shower facing away from shower head until drain(s) are removed. This drain will be removed during your follow up visit. 2.) No vigorous activity or carrying with affected arm. May use arm to comb hair, eat, write, etc. 3.) Do not apply creams or ointments unless directed to do so by your surgeon. 4.) Ambulate (walk) for exercise at least 3 times per day. 5.) Contact your surgeon?s office if you have excessive and persistent pain, swelling, bleeding, or drainage through the dressing, redness or red streaks around the wound, heat or warmth at the site of the incision, or fever of more then 101 degrees. 6.) Resume all home medications. Patient to be given pain medication prescription prior to discharge if needed. 7.) Please be aware that the surgeon will likely inject a ?blue dye? to iden
--- NOTE | 2022-05-26 10:00 | PCOTNOTE ---
Attempted to see pt. for occupational therapy evaluation. Per hospitalist, pt. has declined services and hospitalist will be canceling orders. Spoke with pt. who confirmed.
[2022-05-26] MEDS: MECLIZINE HCL 12.5 MG TABLET PO (12:14)
== END 2022-05-26 14:14 | disposition home or self-care (01) ==
LOC: ANHSURGERY 09:24 → ANH2MED 15:59
PROVIDERS: PCP Student in an Organized Health Care Education/Training Program; Visit Provider Surgery
PROC: (CPT 19303; principal; 2022-05-25 11:30)
PROC: (CPT 38525; 2022-05-25 11:30)
DX: C50.212 Malignant neoplasm of upper-inner quadrant of left female breast (principal); Z17.0 Estrogen receptor positive status [ER+]; D24.1 Benign neoplasm of right breast; I10 Essential (primary) hypertension; G25.81 Restless legs syndrome; K21.9 Gastro-esophageal reflux disease without esophagitis; E78.5 Hyperlipidemia, unspecified
CPT/HCPCS: 19303; 38500; 38900; 36415; 78195; 82948; 85014; 85018; 86850; 86900; 86901; 88307; 93005; A9270; A9520; C1713; J0690; J1100; J1170; J1885; J2405; J2704; J2710; J3010; J7120

== ENCOUNTER 2022-09-04 09:09 | Observation (INO) | payer OTHER, SELFPAY ==
[2022-09-04] VITALS (8 sets, daily range): BP systolic 96–125; BP diastolic 43–88; PULSE 82–94; RESP 15–20; TEMP 36.6–39.2; O2SAT 93–100
--- NOTE | ~2022-09-04 | XR_ITS ---
XR abdomen/kub 1V 09/04/2022 11:23 Indication: Constipation Procedure: KUB Comparison: No prior studies for comparison. Findings: Bowel gas pattern is nonobstructive. Moderate colonic fecal loading. There are cholecystect freddie clips. Mild lumbar spondylosis. No acute osseous abnormality. No abnormal calcifications. Impression: 1: Nonobstructive bowel gas pattern. Reviewed, dictated and finalized at location A. HANDLER Impression: 1: Nonobstructive bowel gas pattern.
--- NOTE | ~2022-09-04 | XR_ITS ---
EXAMINATION: XR chest 2V 09/04/2022 10:54 INDICATION: Nausea and vomiting. Chemotherapy. Fever. Hypertension. History of breast cancer. PROCEDURE: AP and lateral views of the chest COMPARISON: 08/30/2019 FINDINGS: The lungs are clear. The cardiomediastinal silhouette is within normal limits. There are no pleural effusions. There is no pneumothorax suspected. There is a calcified granuloma of the rig ht lower lobe. The lungs are hyperinflated which is consistent with, but not diagnostic of chronic ob structive pulmonary disease. IMPRESSION: 1: NO ACUTE CARDIOPULMONARY DISEASE. Reviewed, dictated and finalized at location A. K GRADER
--- NOTE | 2022-09-04 09:14 | PC.NURSE ---
pt drinking water
[2022-09-04 09:42] LABS: Basophils Percent Auto 1.2 % (0.2-1.2); Eosinophils Percent Auto 1.2 % (0-4.4); Hematocrit 41.2 % (37.0-47.0); Hemoglobin 13.1 g/dL (12.0-15.0); Immature Granulocyte Absolute 0.02 K/mm3 (0.00-0.031); Immature Granulocyte Percent A 1.2 % (0-0.5); Lymphocytes Absolute Auto 0.71 K/mm3 (0.9-3.2); Lymphocytes Percent Auto 44.1 % (18.3-44.2); Mean Corpuscular HGB Conc 31.8 g/dl (32-36); Mean Corpuscular Hemoglobin 29.5 pg (26-34); Mean Corpuscular Volume 92.8 fl (80-100); Mean Platelet Volume 9.7 fl (7.4-10.4); Monocytes Absolute Auto 0.8 K/mm3 (0.1-0.6); Monocytes Percent Auto 48.4 % (2.6-8.5); Neutrophils Absolute Auto 0.1 K/mm3 (1.3-6.7); Neutrophils Percent Auto 3.9 % (45.5-73.1); Nucleated Red Blood Cells Perc 1.2 % (0.0-0.2); Platelet Count Result 225 k/mm3 (150-375); Red Blood Count 4.44 M/mm3 (4.2-5.4); Red Cell Distribution Width 13.9 % (11.5-14.5)
[2022-09-04 09:47] LABS: Alanine Aminotransferase 29 U/L (6-35); Alkaline Phosphatase 87 U/L (38-126); Anion Gap 5 mmol/L (8-16); Aspartate Amino Transferase 38 U/L (14-36); Bilirubin,Total 0.9 mg/dL (0.2-1.3); Blood Urea Nitrogen 11 mg/dL (7-17); Calcium 8.2 mg/dL (8.4-10.2); Carbon Dioxide 24 mmol/L (22-30); Chloride 99 mmol/L (98-107); Estimated CRCL calculation 50 ml/min; Estimated Glomerular Filt Rate > 60; Glucose 149 mg/dL (65-110); Lipase 24 U/L (23-300); Potassium 4.5 mmol/L (3.4-5.0); Sodium 128 mmol/L (137-145)
[2022-09-04 09:49] LABS: INR 1.2; Prothrombin Time 14.4 Seconds (11.1-14.7)
[2022-09-04 10:06] LABS: White Blood Count 1.6 K/mm3 (4.5-10.0)
[2022-09-04 10:10] LABS: Influenza A QL RT-PCR Negative (Negative); Influenza B QL RT-PCR Negative (Negative); RSV RNA, RT-PCR Negative (Negative); SARS-CoV-2 RNA PCR Negative
[2022-09-04 10:28] LABS: Appearance Urine Clear (Clear); Bilirubin Urine Negative (Negative); Blood Urine Trace-intact (Negative); Color Urine Yellow (Yellow); Glucose Urine UA Negative (Negative); Ketones Urine Negative (Negative); Leukocyte Esterase Ur Negative LEU/UL (Negative); Nitrate Urine Negative (Negative); Protein Urine 1+ mg/dL (Negative); Specific Grav Ur 1.015 (1.001-1.035); pH Urine 7.5 (5.0-9.0)
[2022-09-04 10:38] LABS: Mucus Urine Rare /lpf; RBC Urine 0-2 /hpf (0-2); WBC Urine 0-3 /hpf
--- NOTE | 2022-09-04 10:41 | ED.NAVMDI ---
HPI - Nausea/Vomiting/Diarrhea General Chief complaint: Nausea/Vomiting/Diarrhea <CHRYSTAL Mckeon Last Filed: 09/04/22 18:32> Stated complaint: nausea s/p chemo <CHRYSTAL Mckeon Last Filed: 09/04/22 18:32> Time Seen by Provider: 09/04/22 09:54 <CHRYSTAL Mckeon Last Filed: 09/04/22 18:32> Source: patient <CHRYSTAL Mckeon Last Filed: 09/04/22 18:32> Mode of arrival: ambulatory <CHRYSTAL Mckeon Last Filed: 09/04/22 18:32> Limitations: no limitations <CHRYSTAL Mckeon Last Filed: 09/04/22 18:32> History of Present Illness HPI Narrative: Patient is an 82 y/o female who presents to the ED with c/o N/V. Patient reports a history of breast cancer status post bilateral mastectomy. She underwent her first chemotherapy treatment on 08/25, under Dr. Fowler. Today, she developed nausea and vomiting. She was unable to keep anything down which prompted her presentation. She denies any significant abdominal pain. No diarrhea. Last bowel movement a couple of days ago. She states she had severe pain with that BM to the point she felt near-syncopal. Denies any abdominal pain currently. Denies any fevers at home. Denies chest pain or difficulty breathing. <CHRYSTAL Mckeon Last Filed: 09/04/22 18:32> Related Data Home medications: Home Medications Medication Instructions Recorded Confirmed losartan 50 mg tablet 100 mg PO DAILY 07/07/21 09/04/22 fluticasone propionate 50 2 spray intranasal PRN PRN Allergy 07/10/21 09/04/22 mcg/actuation nasal Symptoms spray,suspension ropinirole 0.5 mg tablet 1 mg PO HS PRN restless leg 07/10/21 09/04/22 ferrous sulfate 325 mg (65 mg 325 mg PO DAILY 05/20/22 09/04/22 iron) tablet ondansetron HCl 8 mg tablet 8 mg PO PRN PRN Nausea 09/03/22 09/04/22 atorvastatin 40 mg tablet 40 mg PO DAILY 09/04/22 09/04/22 <Christy Zapata PA-C - Last Filed: 09/04/22 18:32> Allergies/Adverse reactions: Allergies Allergy/AdvReac Type Severity Reaction Status Date / Time amlodipine Allergy Swelling Verified 09/03/22 08:53 lisinopril Allergy Cough Verified 09/03/22 08:53 <Christy Zapata PA-C - Last Filed: 09/04/22 18:32> Review of Systems Review of Systems: CONSTITUTIONAL: Denies fever, chills, or sweats. CARDIOVASCULAR: Denies chest pain. RESPIRATORY: Denies cough or dyspnea. GASTROINTESTINAL: Reports nausea, vomiting, constipation. Denies abdominal pain or diarrhea. GENITOURINARY: Denies dysuria or hematuria. <Christy Zapata PA-C - Last Filed: 09/04/22 18:32> All systems reviewed & are unremarkable except as noted in HPI and below <Christy Zapata PA-C - Last Filed: 09/04/22 18:32> [facility] Past Medical History Medical History: Medical History Abdominal cramping Breast CA Cerebrovascular accident Dyslipidemia GERD without esophagitis History of ganglion cyst Hypertension Osteoarthritis Vitamin D deficiency <Christy Zapata PA-C - Last Filed: 09/04/22 18:32> Surgical History Surgical History: Surgical History H/O excision of mass LEFT UPPER BACK MASS, 07/22 H/O mastectomy Bilateral Simple Mastectomy w Left Axillary [place] Lymph node biopsy on 05/25/22. History of bladder repair surgery History of laparoscopic cholecystectomy Hx of hysterectomy S/P breast augmentation Status post blepharoplasty Status post cataract extraction Status post cholecystectomy <Christy Zapata PA-C - Last Filed: 09/04/22 18:32> Family History Family History: Family History Sibling Diabetes mellitus Family history of diabetes mellitus in first degree relative Family history of lung cancer Patient's sister is Mother Decea
[2022-09-04 10:44] LABS: Add Urine Microscopic? YES
[2022-09-04] MEDS: SODIUM CHLORIDE 0.9% IV 1,000 ML 999 ML IV CONT (11:04)
[2022-09-04] MEDS: ONDANSETRON INJ 4 MG/2 ML VIAL IV PUSH (11:04)
--- NOTE | 2022-09-04 12:45 | PM.IMHP ---
H&P: HPI History of Present Illness Date/Time: 09/04/22 12:45 Chief Complaint: Nausea vomiting diarrhea Narrative: This is an 82-year-old patient who has a history of breast cancer and has been receiving chemotherapy she stated that her last day 8 of chemotherapy was August 25. She does see Dr. Fowler. Today she developed a 2.6 fever. The patient had a bilateral mastectomy with lymph nodes extracted several months back. The patient is scheduled to have a Port-A-Cath this next Tuesday. The patient developed nausea and vomiting today and she could not keep anything down. She denies any abdominal pain. She has not had a bowel movement in the last couple days. Her surgical sites are well approximated and healed. Her white count is 1.6. Her sodium is down to 128. Her blood sugar is 149. Last A1c was on 05/15/2021 was 6.8. The patient was negative for influenza a B COVID and RSV. Dr. Fowler and had been called. The patient was given filgastrin-sndz, vancomycin, and Zosyn. The patient is being admitted to observation status on the date service of . Review of Systems Review of Systems: See HPI All systems reviewed & are unremarkable except as noted in HPI and below Constitutional: Constitutional: Reports as per HPI and Reports no additional constitutional complaints Eyes: Eyes: Reports as per HPI and Reports no additional eye complaints ENT: Reports system reviewed and no additional complaints, except as documented and Reports Normal hearing present Cardiovascular: Cardiovascular: Reports no additional cardiovascular complaints Respiratory: Respiratory: Reports no additional respiratory complaints and Reports no additional respiratory complaints Gastrointestinal: Gastrointestinal: Reports as per HPI and Reports no additional gastrointestinal complaints Musculoskeletal: Musculoskeletal: Reports no additional musculoskeletal complaints Integumentary/Breasts: Skin/Breast: Reports system reviewed and no additional complaints, except as docu and Reports as per HPI Neurologic: Reports system reviewed and no additional complaints, except as documented, Reports as per HPI and Reports Normal hearing present Psychiatric: Psychiatric: Reports no additional psychiatric complaints and Reports as per HPI Endocrine: Endocrine: Reports no additional endocrine complaints Hematologic/Lymphatic: Hematologic/Lymphatic: Reports no additional hematologic/lymphatic complaints Allergic/Immunologic: Allergic/Immunologic: Reports no additional allergic/immunologic complaints [facility] Past Medical History Medical History Abdominal cramping Breast CA Cerebrovascular accident Dyslipidemia GERD without esophagitis History of ganglion cyst Hypertension Osteoarthritis Vitamin D deficiency Surgical History Surgical History H/O excision of mass LEFT UPPER BACK MASS, 07/22 H/O mastectomy Bilateral Simple Mastectomy w Left Axillary [place] Lymph node biopsy on 05/25/22. History of bladder repair surgery History of laparoscopic cholecystectomy Hx of hysterectomy S/P breast augmentation Status post blepharoplasty Status post cataract extraction Status post cholecystectomy Family History Family History Sibling Diabetes mellitus Family history of diabetes mellitus in first degree relative Family history of lung cancer Patient's sister is Mother Family history of Alzheimer's disease Patient's mother is Father Family history of lung cancer Patient's father is Social History Social History (Updated 09/04/22 @ 13:50 by Katelyn Cardona NP) Social History: Mrs. Arteaga is and lives in [place] with her Richard. They have 4 children, one who is . She is retired from [employer].
[2022-09-04 13:13] LABS: Lactic Acid Reflex 0.9 mmol/L (0.7-2.0)
--- NOTE | 2022-09-04 15:43 | ADMGEN ---
This patient, Maryana Arteaga, was admitted to Medical Room 348-01. Patient/family oriented to hospital policies and general routines including ID bracelet, bed and alarms, visiting hours, pain management, procedures, bathroom and other care routines, personal items, smoking policy, room service/diet, and visiting hours. Information on how to activate the Rapid Response Team has been discussed. Patient/Family are encouraged to report perceived risks to care and to ask questions if they do not understand what they are told or what they should do.
[2022-09-04] MEDS: SODIUM CHLORIDE 0.9% IV 1,000 ML 100 ML IV CONT (15:51)
[2022-09-04 17:58] LABS: Sodium Urine Random 67 meq/L
[2022-09-04] MEDS: PANTOPRAZOLE 40 MG TABLET PO (18:32)
[2022-09-04 19:19] LABS: Anion Gap 8 mmol/L (8-16); Blood Urea Nitrogen 9 mg/dL (7-17); Calcium 7.2 mg/dL (8.4-10.2); Carbon Dioxide 18 mmol/L (22-30); Chloride 106 mmol/L (98-107); Estimated CRCL calculation 50 ml/min; Estimated Glomerular Filt Rate > 60; Glucose 145 mg/dL (65-110); Potassium 3.6 mmol/L (3.4-5.0); Sodium 132 mmol/L (137-145)
[2022-09-05 04:09] VITALS: BP 110/49; PULSE 68; RESP 18; TEMP 37.4; O2SAT 99
[2022-09-05 06:39] LABS: Basophils Absolute Auto 0.1 K/mm3 (0.0-0.1); Basophils Percent Auto 2.6 % (0.2-1.2); Eosinophils Percent Auto 0.9 % (0-4.4); Hematocrit 35.3 % (37.0-47.0); Hemoglobin 11.2 g/dL (12.0-15.0); Immature Granulocyte Percent A 5.7 % (0-0.5); Lymphocytes Percent Auto 42.6 % (18.3-44.2); Mean Corpuscular HGB Conc 31.7 g/dl (32-36); Mean Corpuscular Hemoglobin 29.5 pg (26-34); Mean Corpuscular Volume 92.9 fl (80-100); Mean Platelet Volume 9.4 fl (7.4-10.4); Monocytes Absolute Auto 1.1 K/mm3 (0.1-0.6); Monocytes Percent Auto 31.5 % (2.6-8.5); Neutrophils Absolute Auto 0.6 K/mm3 (1.3-6.7); Neutrophils Percent Auto 16.7 % (45.5-73.1); Platelet Count Result 181 k/mm3 (150-375); Red Cell Distribution Width 13.9 % (11.5-14.5); White Blood Count 3.5 K/mm3 (4.5-10.0)
[2022-09-05 06:51] LABS: Alanine Aminotransferase 24 U/L (6-35); Alkaline Phosphatase 75 U/L (38-126); Anion Gap 6 mmol/L (8-16); Aspartate Amino Transferase 25 U/L (14-36); Bilirubin,Total 0.7 mg/dL (0.2-1.3); Blood Urea Nitrogen 8 mg/dL (7-17); Calcium 7.1 mg/dL (8.4-10.2); Carbon Dioxide 22 mmol/L (22-30); Chloride 109 mmol/L (98-107); Estimated CRCL calculation 45 ml/min; Estimated Glomerular Filt Rate > 60; Glucose 84 mg/dL (65-110); Phosphorus 2.2 mg/dL (2.5-4.5); Potassium 3.4 mmol/L (3.4-5.0); Sodium 137 mmol/L (137-145)
[2022-09-05] MEDS: ATORVASTATIN 40 MG TABLET PO (08:51)
[2022-09-05] MEDS: PANTOPRAZOLE 40 MG TABLET PO ×2 (08:51→17:26)
[2022-09-05] MEDS: FERROUS SULFATE 324 MG TABLET PO (08:51)
[2022-09-05] MEDS: FILGRASTIM-SNDZ 300 MCG/0.5 ML SYRINGE SUB-Q (09:03)
--- NOTE | 2022-09-05 10:30 | PM.IMPN ---
Progress Note: A&P Assessment and Plan (1) Neutropenic fever: Code(s): D70.9 - Neutropenia, unspecified; R50.81 - Fever presenting with conditions classified elsewhere Status: Acute Assessment and Plan: -fever was 103 at home and 102.6 here -Dr. Fowler is aware and suggested that the patient be placed on broad-spectrum antibiotics. -change antibiotics to cefepime and vancomycin -blood cultures pending -antipyretics -no acute findings on chest or abdominal x-rays -trend temperature (2) Acute hyponatremia: Code(s): E87.1 - Hypo-osmolality and hyponatremia Status: Acute Assessment and Plan: -sodium was 124 upon arrival -Current sodium 137 -IV fluids at 100ml/hr, can probably DC aid as the patient is drinking -Continue trend sodium -Adjust therapy as indicated (3) Nausea and vomiting: Qualifiers: Vomiting type: unspecified Qualified Code(s): R11.2 - Nausea with vomiting, unspecified Code(s): R11.2 - Nausea with vomiting, unspecified Status: Acute Assessment and Plan: -Seems to be stable at this time -Zofran on board -trend electrolytes -advanced diet to low-fiber (4) Breast CA: Code(s): C50.919 - Malignant neoplasm of unspecified site of unspecified female breast Status: Acute Assessment and Plan: -Dr. Fowler has been consulted -the patient is supposed to have a Port-A-Cath placed by Dr. Dutton this next Tuesday so I will notify him that she is inpatient. -oncology to manage outpatient (5) Hypertension: Code(s): I10 - Essential (primary) hypertension Status: Acute Assessment and Plan: -current blood pressure 110/49 -continue to hold losartan for now -trend blood pressure -adjust therapy as indicated (6) Dyslipidemia: Code(s): E78.5 - Hyperlipidemia, unspecified Status: Acute Assessment and Plan: -holding a atorvastatin at this time due to her weakness. Time Spent With Patient Time with patient: Greater than 35 minutes Subjective Date/time seen: 09/05/22 10;30 Interval history: 09/05/22 1030 Patient stated that she is doing lot better today. She is concerned because she is really constipated feeling. She did state that she was able to the pass gas without pain. She denies any chest pain, shortness a breath common nausea, vomiting, diarrhea, weakness or fatigue. Patient also requested that her diet be advanced and that she was feeling better today. 09/04/22? 12:45 This is an 82-year-old patient who has a history of breast cancer and has been receiving chemotherapy she stated that her last day 8 of chemotherapy was August 25.? She does see Dr. Fowler.? Today she developed a 2.6 fever.? The patient had a bilateral mastectomy with lymph nodes extracted several months back.? The patient is scheduled to have a Port-A-Cath this next Tuesday.? The patient developed nausea and vomiting today and she could not keep anything down.? She denies any abdominal pain.? She has not had a bowel movement in the last couple days.? Her surgical sites are well approximated and healed.? Her white count is 1.6.? Her sodium is down to 128.? Her blood sugar is 149.? Last A1c was on 05/15/2021 was 6.8.? The patient was negative for influenza a B COVID and RSV.? Dr. Fowler and had been called.? The patient was given filgastrin-sndz, vancomycin, and Zosyn.? The patient is being admitted to observation status on the date service of . Review of Systems Review of Systems: All systems reviewed & are unremarkable except as noted in HPI and below Exam Narrative: General: well-nourished, well-appearing 82-year-old female, sitting up in bed, comfortable, NARD Neuro: awake, alert and oriented x4, speech clear, no focal neuro deficits noted HEENMT: normocephalic, atraumatic, EOMI, sclerae anicteric, moist oral mucosa Respirat
[2022-09-05] MEDS: SODIUM CHLORIDE 0.9% IV 1,000 ML 100 ML IV CONT (12:42)
[2022-09-05] MEDS: MAGNESIUM HYDROXIDE SUSP 30 ML UDC PO (12:42)
[2022-09-05 17:34] VITALS: BP 134/60; PULSE 72; RESP 16; TEMP 37.1; O2SAT 98
[2022-09-05] MEDS: LOSARTAN POTASSIUM 50 MG TABLET 100 MG PO (21:20)
[2022-09-05] MEDS: HYDROcodone/acetaminophen (*CRX) 5-325 MG TABLET 1 TAB PO (21:45)
[2022-09-05 22:00] VITALS: BP 130/58; PULSE 77; RESP 16; TEMP 36.7; O2SAT 99
[2022-09-06] MEDS: SODIUM CHLORIDE 0.9% IV 1,000 ML 100 ML IV CONT (02:34)
[2022-09-06 06:22] LABS: Hematocrit 33.5 % (37.0-47.0); Hemoglobin 10.6 g/dL (12.0-15.0); Mean Corpuscular HGB Conc 31.6 g/dl (32-36); Mean Corpuscular Volume 91.5 fl (80-100); Mean Platelet Volume 9.8 fl (7.4-10.4); Platelet Count Result 190 k/mm3 (150-375); Red Blood Count 3.66 M/mm3 (4.2-5.4); White Blood Count 12.1 K/mm3 (4.5-10.0)
[2022-09-06 06:30] LABS: Alanine Aminotransferase 31 U/L (6-35); Albumin Level 2.9 g/dL (3.5-5.1); Alkaline Phosphatase 71 U/L (38-126); Anion Gap 5 mmol/L (8-16); Aspartate Amino Transferase 37 U/L (14-36); Bilirubin,Total 0.4 mg/dL (0.2-1.3); Blood Urea Nitrogen 9 mg/dL (7-17); Calcium 7.2 mg/dL (8.4-10.2); Carbon Dioxide 22 mmol/L (22-30); Chloride 107 mmol/L (98-107); Estimated CRCL calculation 50 ml/min; Estimated Glomerular Filt Rate > 60; Glucose 113 mg/dL (65-110); Magnesium 2.1 mg/dL (1.6-2.3); Potassium 3.3 mmol/L (3.4-5.0); Sodium 134 mmol/L (137-145)
[2022-09-06] MEDS: PANTOPRAZOLE 40 MG TABLET PO (09:07)
[2022-09-06] MEDS: ATORVASTATIN 40 MG TABLET PO (09:07)
[2022-09-06] MEDS: FERROUS SULFATE 324 MG TABLET PO (09:07)
[2022-09-06] MEDS: FILGRASTIM-SNDZ 300 MCG/0.5 ML SYRINGE SUB-Q (09:13)
--- NOTE | 2022-09-06 10:30 | PM.DS ---
DS: Admitting Diagnosis Discharge Date 09/06/22 1030 Admitting Diagnosis Neutropenic fever DS: Discharge Diagnosis Discharge Diagnosis (1) Neutropenic fever: Code(s): D70.9 - Neutropenia, unspecified; R50.81 - Fever presenting with conditions classified elsewhere Status: Acute Assessment and Plan: -fever was 103 at home and 102.6 here -Dr. Fowler is aware and suggested that the patient be placed on broad-spectrum antibiotics. -change antibiotics to cefepime and vancomycin -blood cultures pending -antipyretics -no acute findings on chest or abdominal x-rays -trend temperature No fevers overnight. Will place patient on Levaquin x1 week per recommendations from [facility] (2) Acute hyponatremia: Code(s): E87.1 - Hypo-osmolality and hyponatremia Status: Acute Assessment and Plan: -sodium was 124 upon arrival -Current sodium 134 -IV fluids at 100ml/hr, can probably DC aid as the patient is drinking -Continue trend sodium -Adjust therapy as indicated (3) Nausea and vomiting: Qualifiers: Vomiting type: unspecified Qualified Code(s): R11.2 - Nausea with vomiting, unspecified Code(s): R11.2 - Nausea with vomiting, unspecified Status: Acute Assessment and Plan: -Seems to be stable at this time -Zofran on board -trend electrolytes -advanced diet to low-fiber (4) Breast CA: Code(s): C50.919 - Malignant neoplasm of unspecified site of unspecified female breast Status: Acute Assessment and Plan: -Dr. Fowler has been consulted -the patient is supposed to have a Port-A-Cath placed by Dr. Dutton this next Tuesday so I will notify him that she is inpatient. -oncology to manage outpatient (5) Hypertension: Code(s): I10 - Essential (primary) hypertension Status: Acute Assessment and Plan: -current blood pressure 130/58 -continue to hold losartan for now -trend blood pressure -adjust therapy as indicated (6) Dyslipidemia: Code(s): E78.5 - Hyperlipidemia, unspecified Status: Acute Assessment and Plan: -holding a atorvastatin at this time due to her weakness. DS: Summary Hospital Course Hospital Course: patient is a 82-year-old female with past medical history of breast cancer, hypertension GERD hyperlipidemia, CVA who presented to the ED with complaints of fevers, sweats, chills with nausea vomiting. Upon arrival it was noted the patient had a fever of 102.6. Patient had received chemotherapy recently and white blood cell count was noted to be 1.6. Patient was resuscitated with IV fluids. Sodium was noted to be 124. Sodium is currently 137. Patient is stable and is ready for discharge. White blood cell count is 12.1 today. Patient has been able to tolerate p.o. intake including foods and liquids. Patient denies any chest pain, shortness a breath, nausea, vomiting, diarrhea, constipation, weakness or fatigue. Patient is scheduled for a port placement on the . Dr. Dutton is aware patient is here and is wanting her to follow-up with him per phone tomorrow. Dr. Fowler is also been contacted patient will keep her regular schedule appointment on the . Patient did have blood cultures drawn however still pending no growth today. Status at Discharge Functional status at discharge: independent ambulation Overall status at discharge: patient is progressing back to baseline Time Spent with Patient Time attestation: Total time spent providing and/or coordinating discharge services: 38 minutes Time spent: Greater than 30 minutes Specific discharge activities: Diagnostic testing, chart review, developing a treatment plan, education, care coordination documentation, physical exam, result review Exam Narrative: General: well-nourished, well-appearing 82-year-old female, sitting up in bed, comfortable, NARD Neuro: awake, alert
--- NOTE | 2022-09-06 11:03 | ECG_ITS ---
Measurements Intervals [place] Rate: 70 P: 20 TX: 138 QRS: -22 QRSD: 102 T: 29 QT: 362 QTc: 393 Interpretive Statements SINUS RHYTHM NONSPECIFIC ST & T-WAVE ABNORMALITY BORDERLINE ECG COMPARED TO ECG 05/25/2022 17:33:30 HEART RATE HAS INCREASED Electronically Signed On 09-06-2022 14:47:07 DIRECTOR INSTITUTION by Rojas Serrano M.D.
[2022-09-06 12:08] LABS: Band Neutrophils Percent 40 % (0-6); Lymphocytes Absolute Manual 2.54 K/mm3 (1.1-4.5); Metamyelocytes Percent 6 %; Monocytes Absolute Manual 1.57 K/mm3 (0.1-0.90); Monocytes Percent Manual 13 % (3-9); Myelocytes Percent 2 %; Neutrophils Absolute Manual 7.01 K/mm3 (1.7-7.2); Neutrophils Percent Manual 18 % (46-73); Total Cells Counted 100
[2022-09-06 12:09] LABS: Platelet Estimate Adequate (Adequate); Schistocytes None Seen (NORMAL)
[2022-09-06 12:10] LABS: Crenated RBC 1+ (NORMAL); Poikilocytosis 1+ (NORMAL)
[2022-09-06] MEDS: POTASSIUM CHLORIDE 20 MEQ TABLET 60 MEQ PO (12:40)
[2022-09-06] MEDS: GABAPENTIN 100 MG CAPSULE PO (12:40)
[2022-09-06 12:53] LABS: INR 1.2; Prothrombin Time 14.2 Seconds (11.1-14.7)
[2022-09-06 12:54] LABS: Partial Thromboplastin Time 34.2 SECONDS (22.3-36.8)
[2022-09-08 20:34] LABS: Osmolality, Urine 410 mOsm/kg (50-1200)
--- NOTE | 2022-10-07 18:20 | PDONCCN ---
HPI - Date of Consult Date/Time: 10/07/22 18:20 Requesting Physician: Wilfredo Moreira MD Primary Care Provider: [facility] WORKER PHYSICIAN - Consult Narrative Reason for consult: breast cancer Narrative: Maryana Arteaga is a 82 year old female Pt was discharged prior to consultation Review of Systems - Neurologic Reports system reviewed and no additional complaints, except as documented, Reports hearing [facility] Medical History: Medical History (Last Reviewed 09/14/22 @ 07:02 by Hadley Dutton MD) Abdominal cramping Breast CA Cerebrovascular accident Dyslipidemia GERD without esophagitis History of ganglion cyst Hypertension Osteoarthritis Vitamin D deficiency Surgical History: Surgical History (Last Reviewed 09/14/22 @ 07:07 by Hadley Dutton MD) H/O excision of mass LEFT UPPER BACK MASS, 07/22 H/O mastectomy Bilateral Simple Mastectomy w Left Axillary [place] Lymph node biopsy on 05/25/22. History of bladder repair surgery History of laparoscopic cholecystectomy Hx of hysterectomy S/P breast augmentation Status post blepharoplasty Status post cataract extraction Status post cholecystectomy Family History: Family History (Last Reviewed 09/14/22 @ 07:08 by Hadley Dutton MD) Sibling Diabetes mellitus Family history of diabetes mellitus in first degree relative Family history of lung cancer Patient's sister is Mother Family history of Alzheimer's disease Patient's mother is Father Family history of lung cancer Patient's father is - Social History Social History: Social History (Last Reviewed 09/04/22 @ 18:25 by Christy Zapata PA-C) Alcohol Use: Alcohol intake: never Substance Use: Substance use: never Others: Spiritual care concerns: No Smoking Status: Smoking status: Former smoker Tobacco type: cigarettes Second hand tobacco smoke exposure: Yes Smoking end date: 10/03/88 Smoking Pack-years: Smoking packs per day: 2 Smoking cigarettes per day: 40.0 Years smoked: 30 Smoking pack-years: 60.00 Social Determinants of Health: Has the Lack of Transportation Kept You From Medical Appointments or From Getting Medications?: No Within the Past 12 Months, Were You Worried Whether Your Food Would Run Out Before You Got Money to Buy More?: Never True What is Your Housing Situation Today?: I Have Housing Are You Worried That in the Next 2 Months, You May Not Have Your Own Housing to Live In?: No Do You Have Trouble Paying Your Heating Or Electricity Bill?: No Do You Have Trouble Paying For Medicines?: No Are You Currently Unemployed and Looking for Work?: No Highest Level of Education Completed: High School Diploma/GED Do You Have Trouble With Childcare or the Care of a Family Member?: No Exam - Lab Results Laboratory Last Values WBC 12.1 K/mm3 (4.5-10.0) H 09/06/22 05:58 RBC 3.66 M/mm3 (4.2-5.4) L 09/06/22 05:58 Hgb 10.6 g/dL (12.0-15.0) L 09/06/22 05:58 Hct 33.5 % (37.0-47.0) L 09/06/22 05:58 MCV 91.5 fl (80-100) 09/06/22 05:58 MCH 29.0 pg (26-34) 09/06/22 05:58 MCHC 31.6 g/dl (32-36) L 09/06/22 05:58 RDW 14.0 % (11.5-14.5) 09/06/22 05:58 Plt Count 190 k/mm3 (150-375) 09/06/22 05:58 MPV 9.8 fl (7.4-10.4) 09/06/22 05:58 Immature Gran % (Auto) Not Reportable 09/06/22 05:58 Neut % (Auto) Not Reportable 09/06/22 05:58 Lymph % (Auto) Not Reportable 09/06/22 05:58 [place] % (Auto) Not Reportable 09/06/22 05:58 Eos % (Auto) Not Reportable 09/06/22 05:58 Baso % (Auto) Not Reportable 09/06/22 05:58 Lymph # (Auto) Not Reportable 09/06/22 05:58 [place] # (Auto) Not Reportable 09/06/22 05:58 Eos # (Auto) Not Reportable 09/06/22 05:58 Baso # (Auto) Not Reportable 09/06/22
== END 2022-09-06 13:17 | disposition home or self-care (01) ==
LOC: ANHED 12:37 → ANH3MED 09-05 14:04
PROVIDERS: Nurse Practitioner; Physician Assistant; Admitting Provider Chiropractor; Emergency Provider Emergency Medicine; Visit Provider Internal Medicine
DX: D70.9 Neutropenia, unspecified (principal); E87.1 Hypo-osmolality and hyponatremia; R11.2 Nausea with vomiting, unspecified; C50.919 Malignant neoplasm of unspecified site of unspecified female breast; Z90.13 Acquired absence of bilateral breasts and nipples; R19.7 Diarrhea, unspecified; E78.5 Hyperlipidemia, unspecified; K21.9 Gastro-esophageal reflux disease without esophagitis; R50.81 Fever presenting with conditions classified elsewhere; Z20.822 Contact with and (suspected) exposure to COVID-19; I10 Essential (primary) hypertension; M19.90 Unspecified osteoarthritis, unspecified site; E55.9 Vitamin D deficiency, unspecified; R53.1 Weakness; Z86.73 Personal history of transient ischemic attack (TIA), and cerebral infarction without residual deficits; Z87.891 Personal history of nicotine dependence; Z92.21 Personal history of antineoplastic chemotherapy; Z79.899 Other long term (current) drug therapy; Z79.51 Long term (current) use of inhaled steroids; Z80.1 Family history of malignant neoplasm of trachea, bronchus and lung
CPT/HCPCS: 36415; 51701; 71046; 74018; 80048; 80053; 81001; 83605; 83690; 83735; 83935; 84100; 84300; 84443; 85025; 85610; 85730; 87040; 87081; 87637; 93005; 96361; 96365; 96366; 96367; 96372; 96375; 96376; 99285; A9270; G0378; J0131; J0692; J2405; J2543; J3370; J7030; Q5101

== ENCOUNTER → 2023-05-18 12:12 | Outpatient (CLI) | payer OTHER, SELFPAY ==
--- NOTE | ~2023-05-18 | DEXA_ITS ---
Bone Density Report Name: FRANK SULLIVAN Age: 82 Sex: Female Ethnicity: White Date of : 1940 Indication: postmenopausal; screening for osteoporosis; height loss; cancer; hysterectomy; Referring Provider: GERSON HALE Study: Bone densitometry was performed. Exam Date: May 18, 2023 Accession number: [id number] Bone Density: Region BMD T-score Z-score Classification AP Spine (L1-L4) 0.994 -0.5 2.3 Normal Femoral Neck (Left) 0.786 -0.6 1.9 Normal Total Hip (Left) 0.930 -0.1 2.1 Normal Femoral Neck (Right) 0.847 0.0 2.4 Normal Total Hip (Right) 0.859 -0.7 1.5 Normal Total Hip Mean 0.895 -0.4 1.8 Normal World Health Organization criteria for BMD impression classify patients as: Normal (T-score at or above -1.0), Osteopenia (T-score between -1.0 and -2.5), or Osteoporosis (T-score at or below -2.5). 10-year Fracture Risk: FRAX not reported because: All T-scores for Spine Total, Hip Total, Femoral Neck at or above -1.0 Previous Exams: Region Exam Age BMD T-score BMD Change BMD Change Date g/cm2 vs Baseline vs Previous AP Spine(L1-L4) 05/18/2023 82 0.994 -0.5 0.070* 0.029* 04/12/2019 78 0.965 -0.7 0.041* -0.019 01/03/2017 76 0.984 -0.6 0.060* 0.028* 12/12/2014 74 0.956 -0.8 0.032* 0.032* 07/08/2012 71 0.924 -1.1 Total Hip(Left) 05/18/2023 82 0.930 -0.1 0.035* 0.017 04/12/2019 78 0.914 -0.2 0.018 -0.015 01/03/2017 76 0.929 -0.1 0.034* 0.016 12/12/2014 74 0.913 -0.2 0.018 0.018 07/08/2012 71 0.895 -0.4 Total Hip(Right) 05/18/2023 82 0.859 -0.7 0.026 -0.025 04/12/2019 78 0.885 -0.5 0.052* 0.027 01/03/2017 76 0.857 -0.7 0.024 0.005 12/12/2014 74 0.852 -0.7 0.019 0.019 07/08/2012 71 0.833 -0.9 *Denotes significance at 95% confidence level, LSC for AP Spine = 0.022 g/cm2, LSC for Total Hip = 0.027 g/cm2 Clinical Information Provided by Patient: Has used the following medications: Vitamin D, Calcium, ANESTROZOLE Has the following medical conditions: Cancer, Hysterectomy Patient maximum height was 62 Menopause Age: 32 No regular weight bearing exercise Drinks caffeinated beverages Onset of menses at age 14 Number of children 4 Impress
== END ==
PROVIDERS: PCP Student in an Organized Health Care Education/Training Program; Referring Provider Internal Medicine Hematology & Oncology; Visit Provider Obstetrics & Gynecology Gynecology
DX: Z78.0 Asymptomatic menopausal state (principal)
CPT/HCPCS: 77080

== ENCOUNTER 2024-05-30 09:51 | Outpatient (CLI) | payer OTHER, SELFPAY ==
[2024-05-30 10:18] LABS: Basophils Absolute Auto 0.1 K/mm3 (0.0-0.1); Eosinophils Absolute Auto 0.5 K/mm3 (0-0.3); Eosinophils Percent Auto 5.9 % (0-4.4); Hematocrit 42.1 % (37.0-47.0); Hemoglobin 13.2 g/dL (12.0-15.0); Immature Granulocyte Absolute 0.03 K/mm3 (0.00-0.031); Immature Granulocyte Percent A 0.3 % (0-0.5); Lymphocytes Percent Auto 26.3 % (18.3-44.2); Mean Corpuscular HGB Conc 31.4 g/dl (32-36); Mean Corpuscular Hemoglobin 29.1 pg (26-34); Mean Corpuscular Volume 92.9 fl (80-100); Mean Platelet Volume 10.1 fl (7.4-10.4); Monocytes Absolute Auto 0.8 K/mm3 (0.1-0.6); Monocytes Percent Auto 9.1 % (2.6-8.5); Neutrophils Absolute Auto 5.2 K/mm3 (1.3-6.7); Neutrophils Percent Auto 57.4 % (45.5-73.1); Platelet Count Result 223 k/mm3 (150-375); Red Blood Count 4.53 M/mm3 (4.2-5.4); Red Cell Distribution Width 14.6 % (11.5-14.5); White Blood Count 9.1 K/mm3 (4.5-10.0)
[2024-05-30 11:11] LABS: Alanine Aminotransferase 19 U/L (6-35); Albumin Level 4.3 g/dL (3.5-5.1); Alkaline Phosphatase 93 U/L (38-126); Anion Gap 13 mmol/L (4-12); Aspartate Amino Transferase 26 U/L (14-36); Bilirubin,Total 0.3 mg/dL (0.2-1.3); Blood Urea Nitrogen 17 mg/dL (7-17); Carbon Dioxide 23 mmol/L (22-30); Chloride 104 mmol/L (98-107); Estimated Glomerular Filt Rate > 60; Glucose 113 mg/dL (65-110); Potassium 4.4 mmol/L (3.4-5.0); Sodium 140 mmol/L (137-145)
[2024-06-02 06:03] LABS: CA 15-3 13 U/mL (<32)
== END 2024-05-30 09:52 | disposition home or self-care (01) ==
LOC: ANHLAB 09:52
PROVIDERS: PCP Student in an Organized Health Care Education/Training Program; Visit Provider Internal Medicine Hematology & Oncology
DX: C50.412 Malignant neoplasm of upper-outer quadrant of left female breast (principal); Z17.0 Estrogen receptor positive status [ER+]
CPT/HCPCS: 36415; 80053; 85025; 86300

== ENCOUNTER 2024-10-05 11:27 | Outpatient (CLI) | payer OTHER, SELFPAY ==
[2024-10-05 11:49] LABS: Basophils Absolute Auto 0.1 K/mm3 (0.0-0.1); Basophils Percent Auto 0.8 % (0.2-1.2); Eosinophils Absolute Auto 0.4 K/mm3 (0-0.3); Hematocrit 40.3 % (37.0-47.0); Hemoglobin 12.6 g/dL (12.0-15.0); Immature Granulocyte Absolute 0.03 K/mm3 (0.00-0.031); Immature Granulocyte Percent A 0.3 % (0-0.5); Lymphocytes Absolute Auto 2.88 K/mm3 (0.9-3.2); Lymphocytes Percent Auto 32.6 % (18.3-44.2); Mean Corpuscular HGB Conc 31.3 g/dl (32-36); Mean Corpuscular Volume 92.6 fl (80-100); Mean Platelet Volume 10.2 fl (7.4-10.4); Monocytes Absolute Auto 0.8 K/mm3 (0.1-0.6); Monocytes Percent Auto 9.3 % (2.6-8.5); Neutrophils Absolute Auto 4.6 K/mm3 (1.3-6.7); Platelet Count Result 227 k/mm3 (150-375); Red Blood Count 4.35 M/mm3 (4.2-5.4); Red Cell Distribution Width 14.7 % (11.5-14.5); White Blood Count 8.8 K/mm3 (4.5-10.0)
[2024-10-05 16:35] LABS: Alanine Aminotransferase 23 U/L (6-35); Albumin Level 4.4 g/dL (3.5-5.1); Alkaline Phosphatase 102 U/L (38-126); Anion Gap 6 mmol/L (4-12); Aspartate Amino Transferase 31 U/L (14-36); Bilirubin,Total 0.7 mg/dL (0.2-1.3); Blood Urea Nitrogen 20 mg/dL (7-17); Calcium 9.3 mg/dL (8.4-10.2); Carbon Dioxide 24 mmol/L (22-30); Chloride 106 mmol/L (98-107); Estimated Glomerular Filt Rate 60; Glucose 91 mg/dL (65-110); Potassium 4.8 mmol/L (3.4-5.0); Sodium 136 mmol/L (137-145)
[2024-10-06 11:14] LABS: CA 15-3 17 U/mL (<32)
== END 2024-10-05 11:28 | disposition home or self-care (01) ==
LOC: ANHLAB 11:28
PROVIDERS: PCP Student in an Organized Health Care Education/Training Program; Visit Provider Internal Medicine Hematology & Oncology
DX: C50.412 Malignant neoplasm of upper-outer quadrant of left female breast (principal); Z17.0 Estrogen receptor positive status [ER+]
CPT/HCPCS: 36415; 80053; 85025; 86300

== ENCOUNTER 2025-03-13 09:44 | Outpatient (CLI) | payer OTHER, SELFPAY ==
[2025-03-13 10:00] LABS: Basophils Absolute Auto 0.1 K/mm3 (0.0-0.1); Basophils Percent Auto 0.9 % (0.2-1.2); Eosinophils Absolute Auto 0.6 K/mm3 (0-0.3); Eosinophils Percent Auto 6.6 % (0-4.4); Hematocrit 38.6 % (37.0-47.0); Immature Granulocyte Absolute 0.02 K/mm3 (0.00-0.031); Immature Granulocyte Percent A 0.2 % (0-0.5); Lymphocytes Absolute Auto 2.89 K/mm3 (0.9-3.2); Mean Corpuscular HGB Conc 31.1 g/dl (32-36); Mean Corpuscular Hemoglobin 28.9 pg (26-34); Mean Platelet Volume 10.4 fl (7.4-10.4); Monocytes Absolute Auto 0.8 K/mm3 (0.1-0.6); Monocytes Percent Auto 9.1 % (2.6-8.5); Neutrophils Absolute Auto 4.2 K/mm3 (1.3-6.7); Neutrophils Percent Auto 49.2 % (45.5-73.1); Platelet Count Result 214 k/mm3 (150-375); Red Blood Count 4.15 M/mm3 (4.2-5.4); Red Cell Distribution Width 14.7 % (11.5-14.5); White Blood Count 8.5 K/mm3 (4.5-10.0)
--- OUTSIDE RECORDS SUMMARY | 2025-03-13 10:51 | XMS_ITS | Clinical Summary ---
Author Organization [facility] Shane Sher Address [address] [place] [address] Care Team Providers Care Small Brake Form Operator Name Role Phone GaganChad Zully POTTER Primary Care Provider + Allergies Active Allergy Reactions Criticality Noted Date Comments Amlodipine Swelling,Muscle Pain Low 06/10/2022 Lisinopril Cough Low 06/10/2022 Medications atorvastatin (LIPITOR) 40 mg tablet Take 40 mg by mouth daily at bedtime. 2 Active losartan (COZAAR) 50 mg tablet Take 50 mg by mouth daily. 2 Active omeprazole (PriLOSEC) 40 mg Capsule, Delayed Release(E.C.) Take 40 mg by mouth daily. 2 Active rOPINIRole (REQUIP) 1 mg tablet TAKE 1 TABLET BY MOUTH NIGHTLY AT BEDTIME 2 Active ondansetron (Zofran) 8 mg Tablet Take 1 Tablet (8 mg) by mouth every 8 hours as needed for Nausea/Emesis. 30 Tablet 3 2 Active dexAMETHasone (DECADRON) 4 mg tablet Take 1 Tablet (4 mg) by mouth 2 times daily. Take 1 tablet by mouth twice a day the day before, the day of and the day after chemo 6 Tablet 6 2 Active gabapentin (NEURONTIN) 100 mg capsule Take 100 mg by mouth 3 times daily. 2 Active ferrous sulfate 325 mg (65 mg iron) tablet Take 325 mg by mouth daily with breakfast. Active ergocalciferol (VITAMIN D2) 50,000 unit capsule Take 50,000 Units by mouth every 7 days. 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 Dissolve tablet on top of tongue, then swallow with saliva. 30 Tablet 3 3 Active Ozempic 0.25 mg or 0.5 mg (2 mg/3 mL) Pen Injector INJECT 1/2 (ONE-HALF) MG SUBCUTANEOUSLY ONCE A WEEK Active anastrozole (ARIMIDEX) 1 mg tablet Take 1 Tablet (1 mg) by mouth daily. 90 Tablet 3 4 Active Active Problems Problem Noted Date Diagnosed Date Malignant neoplasm of upper- outer quadrant of left breast in female, estrogen receptor positive 06/10/2022 Encounters Date Type Department Care Team Description 03/05/2025 External Device Data [facility] ABSTRACTION Provider, Abstract 02/26/2025 External Device Data [facility] Provider, Abstract 02/26/2025 External Device Data [facility] Provider, Abstract 02/20/2025 External Device Data [facility] Provider, Abstract 02/19/2025 External Device Data [facility] Provider, Abstract 12/19/2024 External Device Data [facility] Provider, Abstract 12/19/2024 External Device Data [facility] Provider, Abstract from Last 3 Months Social History Tobacco Use Types Packs/Day Years Used Date Smoking Tobacco: Former Cigarettes 2 31 1 958 - 1988 Smokeless Tobacco: Never Tobacco Cessation:Counseling Given: Not Answered Comments Unknown Sex and Gender Information Value Date Recorded Sex Assigned at Not on file Legal Sex Female 2:58 PM CDT Gender Identity Not on file Sexual Orientation Not on file Last Filed Vital Signs Vital Sign Reading Time Taken Comments Blood Pressure 124/77 10/23/2024 11:12 AM WIRE DRAWER Pulse 74 10/23/2024 11:12 AM WIRE DRAWER Temperature 35.9 C (96.7 F) 10/23/2024 11:12 AM WIRE DRAWER Respiratory Rate 14 10/23/2024 11:12 AM WIRE DRAWER Oxygen Saturation 96% 10/23/2024 11:12 AM WIRE DRAWER Inhaled Oxygen Concentration - - Weight 63.5 kg (140 lb) 10/23/2024 11:12 AM WIRE DRAWER Height 154.9 cm (5' 1) 06/10/2022 9:40 AM CDT Body Mass Index 26.45 06/10/2022 9:40 AM CDT Plan of Treatment Upcoming Encounters Date Type Department Care Team (Late st Contact Info) Description 03/21/2025 2:00 PM CDT Office Visit [facility] Oncology and Hematology - [place] [address] [place] [address] Eleno Fowler MD [address] [place] [address] Health Maintenance Due Date Last Done Comments DIABETES ANNUAL FOOT EXAM 1958 DIABETES ANNUAL RETINAL EXAM 1958 DIABETES MICROALBUMIN ANNUAL SCREEN 1958 LDL CHOLESTEROL ANNUAL 1958 RSV VACCINE (60+ or ) (1 - 1-dose 75+ series) 2015 INFLUENZA VACCINE (#1) 2024 3, 08/13/2022, 06/12/2021, Additional history exists COVID-19 Vaccine (2023-2 5 season) 2024 03/11/2022, 08/21/2021, 01/29/2021, Additional history exists Medicare [place] Preventative Visit/Annual Wellness Visit 10/03/2024 DIABETES HBA1C Q 6 MONTHS 03/18/20252023, 03/13/2024, 12/07/2023, Additional history exists OSTEOPOROSIS SCREENING 05/18/2028 3, 05/18/2023, 01/01/2021 DTAP/TDAP/TD VACCINES (2 - T d or Tdap) 02/12/2033 02/12/2023 PNEUMOCOCCAL VACCINE 50+ YEARS Completed 0 03/23/2022, 07/04/2017, 10/06/2015 ZOSTER VACCINE Completed 05/18/2023, 02/12/2023 Insurance [employer] MCR Care Teams Small Brake Form Operator Relationship Specialty Start Date End Date Chad Farah DO [address] [place] [id number] PCP - General Family Practice 06/10/22
[2025-03-13 12:03] LABS: Alanine Aminotransferase 21 U/L (6-35); Albumin Level 4.1 g/dL (3.5-5.1); Alkaline Phosphatase 104 U/L (38-126); Anion Gap 10 mmol/L (4-12); Aspartate Amino Transferase 37 U/L (14-36); Bilirubin,Total 0.5 mg/dL (0.2-1.3); Blood Urea Nitrogen 20 mg/dL (7-17); Calcium 9.1 mg/dL (8.4-10.2); Carbon Dioxide 20 mmol/L (22-30); Chloride 107 mmol/L (98-107); Estimated Glomerular Filt Rate > 60; Glucose 103 mg/dL (65-110); Potassium 4.2 mmol/L (3.4-5.0); Sodium 137 mmol/L (137-145); Total Protein 7.4 g/dL (6.3-8.2)
[2025-03-15 01:48] LABS: CA 15-3 15 U/mL (<32)
== END 2025-03-13 09:45 | disposition home or self-care (01) ==
LOC: ANHLAB 09:45
PROVIDERS: PCP Student in an Organized Health Care Education/Training Program; Visit Provider Internal Medicine Hematology & Oncology
DX: C50.412 Malignant neoplasm of upper-outer quadrant of left female breast (principal); Z17.0 Estrogen receptor positive status [ER+]
CPT/HCPCS: 36415; 80053; 85025; 86300

== ENCOUNTER 2025-07-08 12:30 | Outpatient (CLI) | payer OTHER, SELFPAY ==
--- NOTE | ~2025-07-08 | CT_ITS ---
EXAMINATION: CT abdomen pelvis w con DATE: 07/08/2025 13:06 INDICATION: Right upper quadrant abdominal pain. TECHNIQUE: Computed tomography (CT) of the abdomen and pelvis was performed with 100 mL Omnipaque 350 intravenous contrast. Automated exposure control and iterative reconstruction technique were employed. The dose-length product was 359.28 mGy-cm. COMPARISON: CT abdomen and pelvis 05/15/2014 FINDINGS: The visualized portions of the lung bases demonstrate mild atelectasis. No pleural effusion. The heart size is normal. No pericardial effusion. There is a small sliding hiatal hernia. The liver is normal. There are changes of cholecystectomy. The spleen, pancreas, and adrenal glands are normal. There is a 1.7 cm hemorrhagic cyst in left kidney. There are simple cysts in the kidneys measuring up to 7 mm on the left. There is diverticulosis of the colon without evidence of diverticulitis. The appendix is not visualized. There are no dilated loops of bowel. There are no pathologically enlarged lymph nodes. There is no free intraperitoneal fluid. There is severe lower lumbar spondylosis. Ther e is moderate thoracic spondylosis. IMPRESSION: 1. Small sliding hiatal hernia. Reviewed, dictated and finalized at location E.
[2025-07-08 13:01] LABS: Estimated Glomerular Filt Rate > 60
--- OUTSIDE RECORDS SUMMARY | 2025-07-08 13:29 | XMS_ITS | Clinical Summary ---
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 90 Tablet 3 5 Active Active Problems Problem Noted Date Diagnosed Date Malignant neoplasm of upper- outer quadrant of left breast in female, estrogen receptor positive 06/10/2022 Encounters Date Type Department Care Team Description 06/18/2025 External Device Data [facility] ABSTRACTION Provider, Abstract 05/22/2025 External Device Data [facility] ABSTRACTION Provider, Abstract 05/07/2025 External Device Data [facility] ABSTRACTION Provider, Abstract 04/17/2025 External Device Data [facility] ABSTRACTION Provider, Abstract 04/16/2025 External Device Data [facility] ABSTRACTION Provider, Abstract [...] Sign Reading Time Taken Comments Blood Pressure 138/98 03/21/2025 2:06 PM CDT Pulse 87 03/21/2025 2:04 PM CDT Temperature 36.5 C (97.7 F) 03/21/2025 2:04 PM CDT Respiratory Rate 15 03/21/2025 2:04 PM CDT Oxygen Saturation 95% 03/21/2025 2:04 PM CDT Inhaled Oxygen Concentration - - Weight 64.3 kg (141 lb 12.8 oz) 03/21/2025 2:04 PM CDT Height 154.9 cm (5' 1) 06/10/2022 9:40 AM CDT Body Mass Index 26.79 06/10/2022 9:40 AM CDT Plan of Treatment Upcoming Encounters Date Type Department Care Team (Late st Contact Info) Description 07/23/2025 1:00 PM CDT Office Visit [facility] On[facility] Hematology - [facility] [address] [facility] [address] [place] [address] Eleno Fowler MD [address] [facility] [address] [place] [address] Health Maintenance Due Date Last Done Comments DIABETES ANNUAL FOOT EXAM 1958 DIABETES ANNUAL RETINAL EXAM 1958 DIABETES MICROALBUMIN ANNUAL SCREEN 1958 LDL CHOLESTEROL ANNUAL 1958 RSV VACCINE (60+ or ) (1 - 1-dose 75+ series) 2015 INFLUENZA VACCINE (#1) 2025 4, 07/01/2023, 08/13/2022, Additional history exists COVID-19 Vaccine ( - 2024-2 6 season) 2025 03/11/2022, 08/21/2021, 01/29/2021, Additional history exists DIABETES HBA1C Q 6 MONTHS 06/21/20252024, 09/17/2024, 03/13/2024, Additional history exists OSTEOPOROSIS SCREENING 05/18/2028 3, 05/18/2023, 01/01/2021 DTAP/TDAP/TD VACCINES (2 - T d or Tdap) 02/12/2033 02/12/2023 PNEUMOCOCCAL VACCINE 50+ YEARS Completed 0 03/23/2022, 07/04/2017, 10/06/2015 ZOSTER VACCINE Completed 05/18/2023, 02/12/2023 Insurance [facility] Care Teams 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
== END 2025-07-08 12:31 | disposition home or self-care (01) ==
PROVIDERS: PCP Student in an Organized Health Care Education/Training Program; Visit Provider Student in an Organized Health Care Education/Training Program
DX: R10.11 Right upper quadrant pain (principal); K44.9 Diaphragmatic hernia without obstruction or gangrene
CPT/HCPCS: 74177; Q9967

== ENCOUNTER 2025-07-12 12:24 | Outpatient (CLI) | payer OTHER, SELFPAY ==
[2025-07-12 12:37] LABS: Hematocrit 39.8 % (37.0-47.0); Hemoglobin 12.3 g/dL (12.0-15.0); Immature Granulocyte Percent A 0.2 % (0-0.5); Lymphocytes Absolute Auto 2.42 K/mm3 (0.9-3.2); Mean Corpuscular HGB Conc 30.9 g/dl (32-36); Mean Corpuscular Hemoglobin 28.6 pg (26-34); Mean Corpuscular Volume 92.6 fl (80-100); Nucleated Red Blood Cells Absolute Auto 0.000 K/mm3 (0.0-0.012); Nucleated Red Blood Cells Perc 0.0 % (0.0-0.2); Platelet Count Result 224 k/mm3 (150-375); Red Blood Count 4.30 M/mm3 (4.2-5.4); White Blood Count 8.1 K/mm3 (4.5-10.0)
[2025-07-12 14:19] LABS: Alanine Aminotransferase 21 U/L (6-35); Albumin Level 4.1 g/dL (3.5-5.1); Alkaline Phosphatase 109 U/L (38-126); Anion Gap 9 mmol/L (4-12); Aspartate Amino Transferase 48 U/L (14-36); Bilirubin,Total 0.3 mg/dL (0.2-1.3); Blood Urea Nitrogen 16 mg/dL (7-17); Calcium 9.1 mg/dL (8.4-10.2); Carbon Dioxide 25 mmol/L (22-30); Chloride 105 mmol/L (98-107); Estimated Glomerular Filt Rate > 60; Glucose 101 mg/dL (65-110); Potassium 4.1 mmol/L (3.4-5.0); Sodium 139 mmol/L (137-145); Total Protein 7.7 g/dL (6.3-8.2)
== END 2025-07-12 12:25 | disposition home or self-care (01) ==
PROVIDERS: PCP Student in an Organized Health Care Education/Training Program; Visit Provider Internal Medicine Hematology & Oncology
DX: C50.412 Malignant neoplasm of upper-outer quadrant of left female breast (principal); Z17.0 Estrogen receptor positive status [ER+]
CPT/HCPCS: 36415; 80053; 85025; 86300